=== PATIENT | female | born 1945 | race Caucasian/White ===

== ENCOUNTER 2022-02-16 11:15 | Outpatient (CLI) | payer MEDICARE, SELFPAY ==
[2022-02-16 11:49] LABS: Basophils Percent Auto 0.3 % (0.2-1.2); Eosinophils Percent Auto 0.3 % (0-4.4); Hematocrit 42.1 % (37.0-47.0); Hemoglobin 13.8 g/dL (12.0-15.0); Immature Granulocyte Absolute 0.06 K/mm3 (0.00-0.031); Immature Granulocyte Percent A 0.5 % (0-0.5); Lymphocytes Absolute Auto 2.92 K/mm3 (0.9-3.2); Lymphocytes Percent Auto 24.3 % (18.3-44.2); Mean Corpuscular HGB Conc 32.8 g/dl (32-36); Mean Corpuscular Hemoglobin 31.5 pg (26-34); Mean Corpuscular Volume 96.1 fl (80-100); Mean Platelet Volume 9.8 fl (7.4-10.4); Monocytes Absolute Auto 1.1 K/mm3 (0.1-0.6); Monocytes Percent Auto 9.3 % (2.6-8.5); Neutrophils Absolute Auto 7.8 K/mm3 (1.3-6.7); Neutrophils Percent Auto 65.3 % (45.5-73.1); Platelet Count Result 351 k/mm3 (150-375); Red Blood Count 4.38 M/mm3 (4.2-5.4); Red Cell Distribution Width 14.6 % (11.5-14.5)
[2022-02-16 11:58] LABS: Alanine Aminotransferase 26 U/L (6-35); Albumin Level 4.2 g/dL (3.5-5.1); Alkaline Phosphatase 52 U/L (38-126); Anion Gap 10 mmol/L (8-16); Aspartate Amino Transferase 25 U/L (14-36); Bilirubin,Total 0.3 mg/dL (0.2-1.3); Blood Urea Nitrogen 19 mg/dL (7-17); CRP 1.3 mg/dL (<1.0); Calcium 9.5 mg/dL (8.4-10.2); Carbon Dioxide 32 mmol/L (22-30); Chloride 99 mmol/L (98-107); Cholesterol 189 mg/dL (0-200); Estimated Glomerular Filt Rate 54; Glucose 123 mg/dL (65-110); HDL Direct 61 mg/dL; Sodium 141 mmol/L (137-145); Triglycerides 165 mg/dL (<150); Uric Acid 6.5 mg/dL (2.5-7.5)
[2022-02-16 12:07] LABS: LDL Cholesterol Direct 91 mg/dL
[2022-02-16 12:10] LABS: Hemoglobin A1C 6.5 % (<5.7)
[2022-02-16 13:06] LABS: Digoxin < 0.4 ng/mL (0.8-2.0)
[2022-02-19 15:36] LABS: Anti Cyclic Citrullinated Pept <16 Units (<20)
== END 2022-02-16 11:16 | disposition home or self-care (01) ==
PROVIDERS: PCP Family Medicine; Visit Provider Family Medicine
DX: L40.50 Arthropathic psoriasis, unspecified (principal); M19.90 Unspecified osteoarthritis, unspecified site; I10 Essential (primary) hypertension; I48.91 Unspecified atrial fibrillation; I48.92 Unspecified atrial flutter; E79.0 Hyperuricemia without signs of inflammatory arthritis and tophaceous disease; Z13.1 Encounter for screening for diabetes mellitus; E78.2 Mixed hyperlipidemia; E03.9 Hypothyroidism, unspecified
CPT/HCPCS: 36415; 80053; 80061; 80162; 83036; 84443; 84550; 85025; 86140; 86200

== ENCOUNTER 2022-06-01 08:08 | Outpatient (CLI) | payer MEDICARE, SELFPAY ==
--- NOTE | ~2022-06-01 | XR_ITS ---
EXAMINATION: XR foot RT standing 2V DATE: 06/01/2022 09:16 INDICATION: Arthropathic psoriasis, unspecified. TECHNIQUE: 2 views of right foot standing were obtained. COMPARISON: None. FINDINGS: Bone alignment is normal. No fracture. There is severe osteoarthritis of first metatarsopha langeal joint and mild osteoarthritis of talonavicular joint and some of the interphalangeal joints. There are enthesophytes at the posterior and plantar aspects of calcaneal tuberosity. IMPRESSION: 1. Polyarticular osteoarthritis. Reviewed, dictated and finalized at location A. ER TRIMMER HAND
--- NOTE | ~2022-06-01 | XR_ITS ---
EXAMINATION: XR foot LT standing 2V DATE: 06/01/2022 09:16 INDICATION: Arthropathic psoriasis. TECHNIQUE: 2 views of left foot with weightbearing were obtained. COMPARISON: None. FINDINGS: Bone alignment is normal. No fracture. There is severe osteoarthritis of first metatarsopha langeal joint and mild osteoarthritis of talonavicular joint and some of the interphalangeal joints. There are enthesophytes at the posterior and plantar aspects of calcaneal tuberosity. IMPRESSION: 1. Polyarticular osteoarthritis. Reviewed, dictated and finalized at location A. OR GENETIC COUNSELOR
--- NOTE | ~2022-06-01 | XR_ITS ---
EXAMINATION: XR lumbar spine 2-3V DATE: 06/01/2022 09:16 INDICATION: Arthropathic psoriasis. TECHNIQUE: 3 views of lumbar spine were obtained. COMPARISON: None. FINDINGS: There is 6 degrees dextrocurvature of thoracolumbar spine. There is 3 mm anterolisthesis of L3 on L4. Vertebral body heights are normal. There is severely decreased disc height at L5-S1. There are endplate osteophytes at most levels. There is multilevel severe facet joint osteoarthritis. Ther e is mild osteoarthritis of the sacroiliac joints. There are gallstones in the gallbladder. IMPRESSION: 1. Severe lower lumbar spondylosis. 2. Cholelithiasis. Reviewed, dictated and finalized at location A. NIGHT BABYSITTER
--- NOTE | ~2022-06-01 | XR_ITS ---
EXAMINATION: XR hand BI arthritis min 3V DATE: 06/01/2022 09:16 INDICATION: Arthropathic psoriasis, unspecified. TECHNIQUE: 4 views of right hand and 4 views of left hand on 7 radiographs were obtained. COMPARISON: None. FINDINGS: RIGHT HAND: Scapholunate dissociation is noted. There is severe osteoarthritis of lunate-capitate nathaniel nt, moderate osteoarthritis of triscaphe joint, and severe osteoarthritis of first carpometacarpal elza int. There is moderate osteoarthritis of third metacarpophalangeal joint and mild osteoarthritis of s ome of the metacarpophalangeal joints and interphalangeal joints. At the second-fourth distal interph alangeal joints, there is joint space narrowing, endplate erosions, and osteophytes. There is ankylos is of fifth distal interphalangeal joint. LEFT HAND: Bone alignment is normal. No fracture. There is mild osteoarthritis of triscaphe joint and severe osteoarthritis of first carpometacarpal joint. There is mild osteoarthritis of some of the me tacarpophalangeal joints and interphalangeal joints. There are changes of arthrodesis procedures at s econd, third, and fourth distal interphalangeal joints with screws. IMPRESSION: 1. 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 2. Polyarticular osteoarthritis. 3. Arthritis of right second-fourth distal interphalangeal joints, which may be psoriatic arthritis o r erosive osteoarthritis. 4. 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 5. Arthrodesis procedures at left second-fourth distal interphalangeal joints. Reviewed, dictated and finalized at location A. Y LEVEL SOFTWARE ENGINEER IMPRESSION: 1. 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 2. Polyarticular osteoarthritis. 3. Arthritis of right second-fourth distal interphalangeal joints, which may be psoriatic arthritis or erosive osteoarthritis. 4. 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 5. Arthrodesis procedures at left second-fourth distal interphalangeal joints.
--- NOTE | ~2022-06-01 | XR_ITS ---
EXAMINATION: XR sacroiliac joints min 3V DATE: 06/01/2022 09:16 INDICATION: Arthropathic psoriasis. TECHNIQUE: 3 views of the sacroiliac joints were obtained. COMPARISON: None. FINDINGS: Bone alignment is normal. No fracture. There are bilateral total hip arthroplasties. The sa croiliac joints demonstrate tiny osteophytes. IMPRESSION: 1. Mild osteoarthritis of the sacroiliac joints. No evidence of inflammatory arthropathy. Reviewed, dictated and finalized at location A. RETE PAVING SUPERVISOR IMPRESSION: 1. Mild osteoarthritis of the sacroiliac joints. No evidence of inflammatory ar thropathy.
[2022-06-01 08:47] LABS: Basophils Percent Auto 0.3 % (0.2-1.2); Eosinophils Absolute Auto 0.1 K/mm3 (0-0.3); Eosinophils Percent Auto 0.7 % (0-4.4); Hematocrit 41.6 % (37.0-47.0); Hemoglobin 14.1 g/dL (12.0-15.0); Immature Granulocyte Absolute 0.06 K/mm3 (0.00-0.031); Immature Granulocyte Percent A 0.6 % (0-0.5); Lymphocytes Absolute Auto 2.62 K/mm3 (0.9-3.2); Lymphocytes Percent Auto 26.3 % (18.3-44.2); Mean Corpuscular HGB Conc 33.9 g/dl (32-36); Mean Corpuscular Hemoglobin 32.1 pg (26-34); Mean Corpuscular Volume 94.8 fl (80-100); Mean Platelet Volume 9.6 fl (7.4-10.4); Monocytes Absolute Auto 0.9 K/mm3 (0.1-0.6); Monocytes Percent Auto 9.4 % (2.6-8.5); Neutrophils Absolute Auto 6.2 K/mm3 (1.3-6.7); Neutrophils Percent Auto 62.7 % (45.5-73.1); Platelet Count Result 344 k/mm3 (150-375); Red Blood Count 4.39 M/mm3 (4.2-5.4); Red Cell Distribution Width 13.9 % (11.5-14.5)
[2022-06-01 09:01] LABS: Alanine Aminotransferase 29 U/L (6-35); Albumin Level 4.6 g/dL (3.5-5.1); Alkaline Phosphatase 56 U/L (38-126); Anion Gap 5 mmol/L (8-16); Aspartate Amino Transferase 29 U/L (14-36); Bilirubin,Total 0.5 mg/dL (0.2-1.3); Blood Urea Nitrogen 24 mg/dL (7-17); CRP 1.4 mg/dL (<1.0); Calcium 9.5 mg/dL (8.4-10.2); Carbon Dioxide 32 mmol/L (22-30); Chloride 99 mmol/L (98-107); Estimated Glomerular Filt Rate 54; Glucose 127 mg/dL (65-110); Potassium 3.9 mmol/L (3.4-5.0); Sodium 136 mmol/L (137-145); Uric Acid 7.9 mg/dL (2.5-7.5)
[2022-06-01 09:12] LABS: Erythrocyte Sedimentation Rate 23 mm/hr (0-20)
[2022-06-01 09:26] LABS: Rheumatoid Factor < 12.0 IU/ML (<12)
[2022-06-04 15:08] LABS: NIL 0.05 IU/mL; Quantiferon TB Plus, 1T NEGATIVE (NEGATIVE); TB1-NIL <0.00 IU/mL; TB2-NIL <0.00 IU/mL
[2022-06-05 13:58] LABS: Anti Nuclear Antibody Pattern Nuclear, Nucleolar
[2022-06-05 21:55] LABS: Anti Cyclic Citrullinated Pept <16 Units (<20)
== END 2022-06-01 08:09 | disposition home or self-care (01) ==
PROVIDERS: PCP Family Medicine; Referring Provider Physician Assistant; Visit Provider Internal Medicine
DX: L40.50 Arthropathic psoriasis, unspecified (principal); I10 Essential (primary) hypertension; M19.90 Unspecified osteoarthritis, unspecified site; E11.9 Type 2 diabetes mellitus without complications; M53.3 Sacrococcygeal disorders, not elsewhere classified; M47.896 Other spondylosis, lumbar region; K80.20 Calculus of gallbladder without cholecystitis without obstruction; M19.041 Primary osteoarthritis, right hand; M19.042 Primary osteoarthritis, left hand; M19.071 Primary osteoarthritis, right ankle and foot; M19.072 Primary osteoarthritis, left ankle and foot
CPT/HCPCS: 36415; 72100; 72202; 73130; 73620; 80053; 83036; 84550; 85025; 85652; 86038; 86039; 86140; 86200; 86430; 86480

== ENCOUNTER 2022-06-14 09:11 | Emergency (ER) | payer MEDICARE, SELFPAY ==
--- NOTE | ~2022-06-14 | XR_ITS ---
EXAMINATION: XR chest 2V 06/14/2022 09:50 INDICATION: Cough and congestion. Chest pain. PROCEDURE: 2 view chest COMPARISON: No prior studies for comparison. FINDINGS: The lungs are clear. The cardiomediastinal silhouette is within normal limits. There are no pleural effusions. There is no pneumothorax suspected. IMPRESSION: 1: NO ACUTE CARDIOPULMONARY DISEASE. Reviewed, dictated and finalized at location B. NG MACHINE MECHANIC
--- NOTE | 2022-06-14 09:24 | ED.URI ---
HPI - URI/Sore Throat General Chief Complaint: Upper Respiratory Infection Stated Complaint: cough,sorethroat,congestion Time Seen by Provider: 06/14/22 09:24 Source: patient Mode of arrival: ambulatory Limitations: no limitations History of Present Illness HPI Narrative: Erika is a 76-year-old female patient presenting to the clinic today with complaints of cough, headache, sore throat, nasal congestion, chest congestion x6 days. She reports she has also had a low-grade fever of 100.3. States she is having some chest tightness. Rates the chest tightness/shortness of breath a 5/10 currently. Denies any chest pain or radiation. Cough is productive with some green/page colored phlegm. Does have a history of AFib/flutter, hyperlipidemia, and hypertension. Former smoker. Has been taking Tessalon Perles for her cough. MD elicited complaint: cough, sore throat and nasal congestion Related Data Home Medications Medication Instructions Recorded Confirmed metoprolol succinate 100 mg 100 mg PO DAILY 01/08/22 06/14/22 tablet,extended release 24 hr rivaroxaban 20 mg tablet (Xarelto) 20 mg PO DAILY 01/08/22 06/14/22 Allergies Allergy/AdvReac Type Severity Reaction Status Date / Time iodine Allergy Intermediate Rash Verified 06/14/22 09:31 Ezfgzxo-[id number]-NkC Reductase Allergy Intermediate Muscle Pain Verified 06/14/22 09:31 Inhibitor glycerine Allergy Intermediate Itching Uncoded 06/14/22 09:31 Review of Systems Review of Systems: Pertinent positives per HPI. Patient denies any rash, visual changes, dizziness, palpitations, nausea, vomiting, diarrhea, constipation, abdominal pain, or any urinary issues. [facility] Past Medical History Medical History Arthritis Atrial fibrillation and flutter Benign essential HTN Former smoker She smoked cigarettes but quit in 1981 History of postoperative nausea and vomiting Hyperlipidemia Psoriasis and similar disorder Surgical History Surgical History History of cataract surgery Hx of total hip arthroplasty Family History Family History Mother Hypertension Heart disease Sibling Leukemia Heart disease Thyroid disorder Social History Social History Social History: Smoking status: Former smoker Tobacco type: cigarettes Second hand tobacco smoke exposure: No Alcohol intake: current Alcohol use details: Pt drinks once a month Substance use: never Substance use type: does not use Lack of Transportation: No Lack of Food: Never True Current Housing: I Have Housing Concerned About Future Housing: No Difficulty Paying Gas/Electric Bills: No Difficulty Paying for Meds: No Currently Unemployed: No Education: High School Diploma/GED Difficulty w/ Childcare or Family Care: No Living arrangements: alone Occupation/Education: retired Gender identity (if verbalized by the patient): Female Sexual Orientation (if Verbalized by the Patient): Straight or Heterosexual Comments At the time of my signature, I reviewed and agree with the nursing past medical, surgical, social, and family history. There is no relevant family history pertinent to the patient complaint. Exam Narrative: General: Well-developed, well nourished, in no apparent distress Head: Normocephalic, atraumatic Eyes: Pupils equally round and reactive to light bilaterally, EOM intact, sclera and conjunctive clear, no discharge, lids normal Ears: TMs intact and dull, ear canals clear, no drainage, grossly hearing normal. Nose: Nares patent, clear nasal discharge, no inflammation, no sinus tenderness. Mouth: Oral pharynx without lesions or masses, good dentition, MMM. Oropharynx red with tonsils surgically absent Neck: Sup
[2022-06-14 09:26] VITALS: BP 152/78; PULSE 111; RESP 18; TEMP 36.7; O2SAT 97
--- NOTE | 2022-06-14 09:42 | ECG_ITS ---
Measurements Intervals [place] Rate: 91 P: HI: 0 QRS: -38 QRSD: 93 T: 28 QT: 336 QTc: 414 Interpretive Statements ATRIAL FIBRILLATION BASELINE ARTIFACT LEFT AXIS DEVIATION MINIMAL ST DEPRESSION BORDERLINE ECG NO PREVIOUS ECG AVAILABLE FOR COMPARISON Electronically Signed On 06-14-2022 14:17:56 PAYABLE REPRESENTATIVE by Sam Jackman M.D.
== END 2022-06-14 10:11 | disposition home or self-care (01) ==
PROVIDERS: Emergency Provider Nurse Practitioner Family; PCP Family Medicine
DX: J02.0 Streptococcal pharyngitis (principal); R06.02 Shortness of breath; E11.9 Type 2 diabetes mellitus without complications; I48.91 Unspecified atrial fibrillation; E78.5 Hyperlipidemia, unspecified; I10 Essential (primary) hypertension; Z87.891 Personal history of nicotine dependence; Z79.01 Long term (current) use of anticoagulants; Z20.822 Contact with and (suspected) exposure to COVID-19
CPT/HCPCS: 71046; 87426; 87880; 93005; 99213; C9803; G0463

== ENCOUNTER 2022-08-23 08:17 | Outpatient (CLI) | payer MEDICARE, SELFPAY ==
--- NOTE | ~2022-08-23 | DEXA_ITS ---
Bone Density Report Name: SHERRON CASTAÑEDA Age: 77 Sex: Female Ethnicity: White Date of : 1945 Indication: postmenopausal; screening for osteoporosis; height loss; Referring Provider: VIKKI POSADA Study: Bone densitometry was performed. Exam Date: August 23, 2022 Accession number: [id number] Bone Density: Region BMD T-score Z-score Classification AP Spine(L1-L4) 1.087 0.4 2.8 Normal World Health Organization criteria for BMD impression classify patients as: Normal (T-score at or above -1.0), Osteopenia (T-score between -1.0 and -2.5), or Osteoporosis (T-score at or below -2.5). Clinical Information Provided by Patient: Patient maximum height was 69 Menopause Age: 52 No regular weight bearing exercise Drinks caffeinated beverages Onset of menses at age 15 Number of children 3 Impression: The patient has normal bone mass. Discussion: LOW RISK OF FRACTURE; BONE DENSITY IS WELL ABOVE THE MINIMUM DESIRABLE LEVEL AND ABOVE AVERAGE FOR AGE AND SEX AT ALL SKELETAL SITES TESTED. This person's bone density is above expected limits for age and sex. This is rarely clinically significant, but should be pursued if there are significant musculoskeletal complaints. The patient should follow a healthful lifestyle (good nutrition with adequate calcium and vitamin D, and appropriate weight-bearing exercise). Follow-Up: Consider repeating this study in 5 years or sooner if there is some new clinical indication. Reported by: [facility] on 08/23/2022 9:20:00 AM. Reviewed, dictated and finalized at location AGerald SOLO
--- NOTE | ~2022-08-23 | DEXA_ITS ---
Bone Density Report Name: SHERRON CASTAÑEDA Age: 77 Sex: Female Ethnicity: White Date of : 1945 Indication: postmenopausal; screening for osteoporosis; height loss; Referring Provider: VIKKI POSADA Study: Bone densitometry was performed. Exam Date: August 23, 2022 Accession number: [id number] Bone Density: Region BMD T-score Z-score Classification AP Spine(L1-L4) 1.087 0.4 2.8 Normal World Health Organization criteria for BMD impression classify patients as: Normal (T-score at or above -1.0), Osteopenia (T-score between -1.0 and -2.5), or Osteoporosis (T-score at or below -2.5). Clinical Information Provided by Patient: Patient maximum height was 69 Menopause Age: 52 No regular weight bearing exercise Drinks caffeinated beverages Onset of menses at age 15 Number of children 3 Impression: The patient has normal bone mass. Discussion: LOW RISK OF FRACTURE; BONE DENSITY IS WELL ABOVE THE MINIMUM DESIRABLE LEVEL AND ABOVE AVERAGE FOR AGE AND SEX AT ALL SKELETAL SITES TESTED. This person's bone density is above expected limits for age and sex. This is rarely clinically significant, but should be pursued if there are significant musculoskeletal complaints. The patient should follow a healthful lifestyle (good nutrition with adequate calcium and vitamin D, and appropriate weight-bearing exercise). Follow-Up: Consider repeating this study in 5 years or sooner if there is some new clinical indication. Reported by: [facility] on 08/23/2022 9:03:00 AM. Reviewed, dictated and finalized at location A.
--- NOTE | ~2022-08-23 | MM_ITS ---
EXAMINATION: MM screening kaila BI w heriberto HISTORY: Screening mammogram TECHNIQUE: Craniocaudal and mediolateral oblique 3-D tomosynthesis images were obtained and synthetic 2-D images were generated. CAD analysis was submitted and interpreted. COMPARISON: No prior mammogram is available for comparison at this institution. BREAST PARENCHYMAL COMPOSITION: There are scattered areas of fibroglandular density. FINDINGS: Scattered benign-appearing calcifications are present. No suspicious mass, calcification, o r architectural distortion are identified in either breast to suggest malignancy. IMPRESSION: 1. No mammographic evidence of malignancy. 2. Recommend routine screening mammography in one year. BI-RADS Category 2: Benign finding(s). Reviewed, dictated and finalized at location A.
== END 2022-08-23 08:18 | disposition home or self-care (01) ==
LOC: ANHIMG 08:18
PROVIDERS: PCP Family Medicine; Visit Provider Family Medicine
DX: Z12.31 Encounter for screening mammogram for malignant neoplasm of breast (principal); Z78.0 Asymptomatic menopausal state
CPT/HCPCS: 77063; 77067; 77080

== ENCOUNTER 2022-08-30 09:48 | Outpatient (CLI) | payer MEDICARE, SELFPAY ==
[2022-08-30 10:18] LABS: Hematocrit 40.9 % (37.0-47.0); Hemoglobin 13.5 g/dL (12.0-15.0); Mean Corpuscular Hemoglobin 32.3 pg (26-34); Mean Corpuscular Volume 97.8 fl (80-100); Mean Platelet Volume 9.9 fl (7.4-10.4); Platelet Count Result 326 k/mm3 (150-375); Red Blood Count 4.18 M/mm3 (4.2-5.4); Red Cell Distribution Width 14.6 % (11.5-14.5); White Blood Count 9.1 K/mm3 (4.5-10.0)
[2022-08-30 10:22] LABS: Appearance Urine Clear (Clear); Bacteria Urine None Seen /hpf; Bilirubin Urine Negative (Negative); Blood Urine Negative (Negative); Color Urine Yellow (Yellow); Glucose Urine UA Negative (Negative); Ketones Urine Negative (Negative); Leukocyte Esterase Ur Trace LEU/UL (Negative); Nitrate Urine Negative (Negative); Non Pathogenic Casts 0-2; Protein Urine 3+ mg/dL (Negative); RBC Urine 0-2 /hpf (0-2); Specific Grav Ur 1.017 (1.001-1.035); Squamous Epithelial Cell Urine Occasional /hpf (Few); Urobilinogen Urine 0.2 mg/dL (<2.0)
[2022-08-30 10:34] LABS: Add Urine Microscopic? YES
[2022-08-30 10:34] LABS: Alanine Aminotransferase 32 U/L (6-35); Albumin Level 4.1 g/dL (3.5-5.1); Alkaline Phosphatase 48 U/L (38-126); Anion Gap 6 mmol/L (8-16); Aspartate Amino Transferase 26 U/L (14-36); Bilirubin,Total 0.5 mg/dL (0.2-1.3); Blood Urea Nitrogen 24 mg/dL (7-17); CRP 1.8 mg/dL (<1.0); Calcium 9.3 mg/dL (8.4-10.2); Carbon Dioxide 32 mmol/L (22-30); Chloride 100 mmol/L (98-107); Estimated Glomerular Filt Rate 54; Glucose 123 mg/dL (65-110); Potassium 4.1 mmol/L (3.4-5.0); Sodium 138 mmol/L (137-145)
[2022-08-30 11:01] LABS: Erythrocyte Sedimentation Rate 30 mm/hr (0-20)
[2022-08-30 14:14] LABS: Vitamin D 25 Hydroxy 24.6 ng/mL
== END 2022-08-30 09:49 | disposition home or self-care (01) ==
PROVIDERS: PCP Family Medicine; Visit Provider Internal Medicine
DX: L40.50 Arthropathic psoriasis, unspecified (principal); M19.90 Unspecified osteoarthritis, unspecified site; I10 Essential (primary) hypertension
CPT/HCPCS: 36415; 80053; 81001; 82306; 84550; 85027; 85652; 86140; 87086; 87088

== ENCOUNTER 2022-12-07 08:02 | Outpatient (CLI) | payer MEDICARE, SELFPAY ==
[2022-12-07 08:29] LABS: Hematocrit 41.6 % (37.0-47.0); Hemoglobin 13.4 g/dL (12.0-15.0); Mean Corpuscular HGB Conc 32.2 g/dl (32-36); Mean Corpuscular Hemoglobin 32.1 pg (26-34); Mean Corpuscular Volume 99.8 fl (80-100); Mean Platelet Volume 10.1 fl (7.4-10.4); Platelet Count Result 323 k/mm3 (150-375); Red Blood Count 4.17 M/mm3 (4.2-5.4); Red Cell Distribution Width 13.8 % (11.5-14.5); White Blood Count 11.2 K/mm3 (4.5-10.0)
[2022-12-07 08:41] LABS: Alanine Aminotransferase 31 U/L (6-35); Albumin Level 4.3 g/dL (3.5-5.1); Alkaline Phosphatase 50 U/L (38-126); Anion Gap 6 mmol/L (8-16); Aspartate Amino Transferase 27 U/L (14-36); Bilirubin,Total 0.4 mg/dL (0.2-1.3); Blood Urea Nitrogen 27 mg/dL (7-17); CRP 1.2 mg/dL (<1.0); Calcium 9.4 mg/dL (8.4-10.2); Carbon Dioxide 32 mmol/L (22-30); Chloride 103 mmol/L (98-107); Estimated Glomerular Filt Rate 54; Glucose 126 mg/dL (65-110); Potassium 4.2 mmol/L (3.4-5.0); Sodium 141 mmol/L (137-145)
[2022-12-07 08:50] LABS: Hemoglobin A1C 6.2 % (<5.7)
[2022-12-07 09:08] LABS: Appearance Urine Cloudy (Clear); Bacteria Urine 4+ /hpf; Bilirubin Urine Negative (Negative); Blood Urine Negative (Negative); Color Urine Yellow (Yellow); Glucose Urine UA Negative (Negative); Ketones Urine Negative (Negative); Leukocyte Esterase Ur Negative LEU/UL (Negative); Need Manual Microscopic Reviewed; Nitrate Urine Negative (Negative); Protein Urine 3+ mg/dL (Negative); RBC Urine 0-2 /hpf (0-2); Squamous Epithelial Cell Urine Occasional /hpf (Few); Urobilinogen Urine 0.2 mg/dL (<2.0); WBC Urine 21-50 /hpf
[2022-12-07 09:10] LABS: Add Urine Microscopic? YES
== END 2022-12-07 08:03 | disposition home or self-care (01) ==
LOC: ANHLAB 08:04
PROVIDERS: PCP Family Medicine; Referring Provider Internal Medicine; Visit Provider Family Medicine
DX: L40.50 Arthropathic psoriasis, unspecified (principal); I10 Essential (primary) hypertension; M19.90 Unspecified osteoarthritis, unspecified site; E11.9 Type 2 diabetes mellitus without complications
CPT/HCPCS: 36415; 80053; 81001; 83036; 85027; 86140; 87086; 87088

== ENCOUNTER 2023-04-20 08:12 | Outpatient (CLI) | payer MEDICARE, SELFPAY ==
--- NOTE | ~2023-04-20 | NM_ITS ---
EXAMINATION: NM haider stress w perfusion DATE: 04/20/2023 12:09 INDICATION: Other forms of dyspnea TECHNIQUE: Rest images were obtained following intravenous administration of 11 mCi Tc99m tetrofosmin (Myoview). The patient was infused intravenously with Lexiscan (Regadenoson). Then, 34.2 mCi Tc99m t etrofosmin (Myoview) was administered intravenously, and stress images were obtained. Data was recons tructed into short axis and horizontal and vertical long axis SPECT images. Gated SPECT images were a lso obtained. COMPARISON: None. FINDINGS: There is no definite reversible or fixed perfusion abnormality to suggest ischemia or infar ction. There is normal left ventricular chamber size, wall motion and ejection fraction. Left ventr icular ejection fraction measures >70%. IMPRESSION: 1. Normal myocardial perfusion at rest and during stress. 2. Left ventricular ejection fraction measuring >70%. Reviewed, dictated and finalized at location A. F TECHNICIAN HELPER
--- NOTE | 2023-04-20 08:16 | EST_ITS ---
Patient Info Name: Erika Samaniego Age: 77 years : 1945 Gender: Female Ht: 68 in Wt: 223 lbs BSA: 2.24 m2 HR: 89 bpm BP: 166 / 94 mmHg Heart Rhythm: Sinus Rhythm Exam Date: 04/20/2023 9:11 AM Exam Location: Echo Lab Patient Status: Outpatient Admit Date: 04/20/2023 Staff Ordering Physician: Braxton Arcos DO Attending Provider: Braxton Arcos DO Exercise Technologist: Michelle Kothari RDCS Exercise Physician: Braxton Arcos DO Exam Type: CA stress haider w NM Study Info A regadenoson stress test was performed. Summary 1. 1. Negative Lexiscan stress test for ischemic ST changes by ECG criteria. 2. 2. Baseline hypertension. 3. 3. Nuclear scan to follow and will be reported separately. Please correlate with it. 4. 4. Patient informed of the above results. Protocol: Lexiscan Stress ECG Details Stage: REST Duration (min): 3 min : 31 sec HR (bpm): 87 SBP (mmHg): 166 DBP (mmHg): 94 Stage: REST Duration (min): 10 min : 51 sec HR (bpm): 90 SBP (mmHg): 166 DBP (mmHg): 94 Stage: STAGE 1 Duration (min): 1 min : 0 sec HR (bpm): 103 SBP (mmHg): 198 DBP (mmHg): 82 Stage: RECOVERY Duration (min): 1 min : 0 sec HR (bpm): 106 SBP (mmHg): 198 DBP (mmHg): 82 Stage: RECOVERY Duration (min): 2 min : 0 sec HR (bpm): 94 SBP (mmHg): 198 DBP (mmHg): 82 Stage: RECOVERY Duration (min): 3 min : 0 sec HR (bpm): 95 SBP (mmHg): 171 DBP (mmHg): 79 Stage: RECOVERY Duration (min): 3 min : 30 sec HR (bpm): 94 SBP (mmHg): 171 DBP (mmHg): 79 Rest HR: 90 bpm Peak HR: 110 bpm Rest Sys BP: 166 mmHg Peak Sys BP: 198 mmHg Max Pred HR: 145 bpm % Max Pred HR: 76 % Target HR: 123 bpm Max RPP: 21,780 bpm*mmHg Termination Reason: Completed protocol Cardiac Symptoms: Shortness of breath, Headache Total Time: 1 min : 0 sec Rest Samano BP: 94 mmHg Peak Samano BP: 82 mmHg Total Dose: 0.4 mg Resting ECG Atrial fibrillation. Stress ECG No ST changes. Arrhythmias Only baseline atrial fibrillation. Report Signatures
== END 2023-04-20 08:13 | disposition home or self-care (01) ==
PROVIDERS: PCP Family Medicine; Visit Provider Internal Medicine Cardiovascular Disease
DX: R06.09 Other forms of dyspnea (principal); I10 Essential (primary) hypertension
CPT/HCPCS: 78452; 93017; A9502; J2785

== ENCOUNTER 2023-04-26 14:53 | Outpatient (CLI) | payer MEDICARE, SELFPAY ==
--- NOTE | ~2023-04-26 | CT_ITS ---
EXAMINATION: CT LE LT wo con DATE: 04/26/2023 15:26 INDICATION: Unilateral primary osteoarthritis of left knee. TECHNIQUE: Computed tomography (CT) of the left lower limb was performed without intravenous contrast . Automated exposure control and iterative reconstruction technique were employed. The dose-length pr oduct was 1947.48 mGy-cm. COMPARISON: Left knee radiographs 01/20/2023 FINDINGS: There is a total left hip arthroplasty in near-anatomic alignment. No periprosthetic lucenc y to suggest loosening or infection. Partially visualized is a total right hip arthroplasty. Left kne e demonstrates lateral subluxation of patella. Left knee demonstrates severe osteoarthritis of latera l compartment and moderate osteoarthritis of medial and patellofemoral compartments. There is a large knee joint effusion. IMPRESSION: 1. Severe left knee osteoarthritis. 2. Large left knee joint effusion. 3. Total left hip arthroplasty in near-anatomic alignment. Reviewed, dictated and finalized at location A. NALISTS AND OTHER WRITERS
== END 2023-04-26 14:54 | disposition home or self-care (01) ==
LOC: ANHIMG 14:56
PROVIDERS: PCP Family Medicine; Visit Provider Orthopaedic Surgery
DX: M17.12 Unilateral primary osteoarthritis, left knee (principal); M25.462 Effusion, left knee; Z96.642 Presence of left artificial hip joint
CPT/HCPCS: 73700

== ENCOUNTER 2023-05-13 10:20 | Outpatient (CLI) | payer MEDICARE, SELFPAY ==
[2023-05-13 14:13] LABS: Cholesterol 239 mg/dL (0-200); HDL Direct 56 mg/dL; Triglycerides 266 mg/dL (<150)
[2023-05-13 14:17] LABS: Urine Cotinine NEGATIVE
[2023-05-13 14:24] LABS: LDL Cholesterol Direct 120 mg/dL
[2023-05-13 14:25] LABS: Hemoglobin A1C 6.3 % (<5.7)
== END 2023-05-13 10:21 | disposition home or self-care (01) ==
PROVIDERS: Internal Medicine Cardiovascular Disease; Orthopaedic Surgery; PCP Family Medicine; Visit Provider Internal Medicine Hematology & Oncology
DX: E78.2 Mixed hyperlipidemia (principal); E11.9 Type 2 diabetes mellitus without complications; Z79.899 Other long term (current) drug therapy
CPT/HCPCS: 80061; 80307; 83036

== ENCOUNTER 2023-07-22 12:08 | Outpatient (CLI) | payer MEDICARE, SELFPAY ==
[2023-07-22 13:57] LABS: Basophils Percent Auto 0.2 % (0.2-1.2); Eosinophils Percent Auto 0.4 % (0-4.4); Hematocrit 41.2 % (37.0-47.0); Hemoglobin 13.7 g/dL (12.0-15.0); Immature Granulocyte Absolute 0.04 K/mm3 (0.00-0.031); Immature Granulocyte Percent A 0.4 % (0-0.5); Lymphocytes Absolute Auto 2.71 K/mm3 (0.9-3.2); Lymphocytes Percent Auto 29.2 % (18.3-44.2); Mean Corpuscular HGB Conc 33.3 g/dl (32-36); Mean Corpuscular Hemoglobin 32.9 pg (26-34); Mean Platelet Volume 9.9 fl (7.4-10.4); Monocytes Absolute Auto 1.3 K/mm3 (0.1-0.6); Neutrophils Absolute Auto 5.2 K/mm3 (1.3-6.7); Neutrophils Percent Auto 55.8 % (45.5-73.1); Platelet Count Result 283 k/mm3 (150-375); Red Blood Count 4.16 M/mm3 (4.2-5.4); Red Cell Distribution Width 13.8 % (11.5-14.5); White Blood Count 9.3 K/mm3 (4.5-10.0)
[2023-07-22 14:07] LABS: Albumin Level 4.4 g/dL (3.5-5.1)
[2023-07-22 14:11] LABS: Anion Gap 7 mmol/L (4-12); Blood Urea Nitrogen 27 mg/dL (7-17); Carbon Dioxide 29 mmol/L (22-30); Chloride 102 mmol/L (98-107); Estimated Glomerular Filt Rate 54; Glucose 119 mg/dL (65-110); Potassium 4.4 mmol/L (3.4-5.0); Sodium 138 mmol/L (137-145)
[2023-07-22 14:46] LABS: Hemoglobin A1C 6.1 % (<5.7)
[2023-07-22 14:56] LABS: Urine Cotinine NEGATIVE
[2023-07-22 15:06] LABS: MRSA (PCR) NOT DETECTED (NOT DETECTE)
[2023-07-22 15:19] LABS: Digoxin < 0.5 ng/mL (0.8-2.0)
== END 2023-07-22 12:09 | disposition home or self-care (01) ==
LOC: ANHSURGERY 12:11
PROVIDERS: Anesthesiology; PCP Family Medicine; Visit Provider Orthopaedic Surgery
DX: M17.12 Unilateral primary osteoarthritis, left knee (principal); I10 Essential (primary) hypertension; Z01.818 Encounter for other preprocedural examination
CPT/HCPCS: 36415; 80048; 80162; 80307; 82040; 83036; 85025; 87641

== ENCOUNTER 2023-08-16 00:40 | Day surgery (SDC) | payer MEDICARE, SELFPAY ==
[2023-07-22 12:18] VITALS: BMI 34.2
--- NOTE | 2023-07-22 13:05 | PC.NURSE ---
Report to the Outpatient Waiting Room, entrance under the green pavilion located off [facility], at time _0600 on date _08/16/23 . Planned Procedure Time: ___729 . Time changes happen often and if your time is changed the preop area will call you the afternoon before. - You and your visitor will be asked to self-screen and do not enter if you have any COVID symptoms. - A mask is optional within the hospital at this time. Patients may have clear liquids (water, carbonated beverages, clear teas, apple juice) until 3 hours prior to surgery ( 4:30 AM)with a maximum of 20 ounces. - No food from midnight until time of surgery - Infants may have breast milk until 4 hours before surgery, formula 6 hours prior to surgery. - Children will be allowed to drink immediately following surgery. If applicable, please bring a bottle or sippy cup to assist with drinking. Juice, water, soda, and popsicles are readily available. For infants on formula, please bring formula the day of surgery. Pacifiers are allowed. Take the following medications with a SIP of water the morning of surgery: ____DIGOXIN, DO NOT STOP ANY OF YOUR OTHER PRESCRIPTION MEDICATIONS PRIOR TO SURGERY ?EXCEPT THE FOLLOWING Medications to discontinue per physician ____MAY TAKE TYLENOL IF NEEDED FOR PAIN.HOLD ALL VITAMINS AND SUPPLEMENTS 3 DAYS PRE OP .LAST DOSE 08/12/[address] APPLE Please no make-up, nail bulgarian, hairspray, perfume, deodorant, or body powder the day of surgery. No jewelry (including any body piercings) or valuables the day of surgery, leave them at home. Please take a shower or bath the night before, or the morning of, surgery with an antibacterial soap. Wear comfortable, loose fitting clothing. Children are encouraged to wear pajamas. - Jewelry must be removed prior to entering the operating room. Rings and piercings that are not removed may be cut off. - The hospital will not accept responsibility for valuables. - Please leave all valuables, including medications, at home the day of surgery. If you are going home after surgery, a licensed electric train driver must drive you home. - NO public transportation without another adult if you receive anesthesia. - We recommend that an adult stay with you for 24 hours following discharge. - We also recommend that you do not drive, make important decision, drink alcoholic beverages, or take any drugs that were not prescribed by your health care provider for at least 24 hours after your discharge time. Follow any additional instructions given to you from your surgeon. If you or anyone in your household have experienced Covid symptoms in the past week, please notify your surgeon or the nurse liaison at the phone number below for possible testing. VERBAL AND WRITTEN instructions given to __PATIENT AND DAUGHTER MADI and asked if any additional questions and then verbalized understanding. Patient advised to call surgeon office or pre surgery nurse liaison [phone] if any additional questions.
[2023-07-22 13:19] VITALS: BP 151/73; PULSE 88; RESP 18; TEMP 37.3; O2SAT 98
[2023-07-22 13:40] VITALS: BP 151/74; PULSE 88; RESP 18; TEMP 37.3; O2SAT 98
[2023-08-16] VITALS (12 sets, daily range): BP systolic 132–164; BP diastolic 71–98; PULSE 60–115; RESP 15–20; TEMP 36.4–37.4; O2SAT 92–100
--- NOTE | ~2023-08-16 | XR_ITS ---
EXAMINATION: [id number] DATE: 08/16/2023 10:13 CDT INDICATION: Left total knee arthroplasty TECHNIQUE: 2 views left knee FINDINGS: There is a left total knee arthroplasty in expected position. Subcutaneous gas with fluid and air in the joint are consistent with recent surgery. No evidence of periprosthetic fracture. IMPRESSION: 1. Recent left total knee arthroplasty. Reviewed, dictated and finalized at location B.
[2023-08-16] MEDS: ACETAMINOPHEN 500 MG TABLET 1000 MG PO (06:32)
[2023-08-16] MEDS: LACTATED RINGERS 1,000 ML 30 ML IV CONT ×2 (06:50→09:52)
--- NOTE | 2023-08-16 07:01 | WPDANESEPPF ---
Anes - Initial Pre Proc Eval Procedure: Operation Date: 08/16/23 07:30 Proposed Procedures p Left Custom Total Knee Arthroplasty - Mushtaq Vines MD Date/Time: 08/16/23 07:01 Surgeon: Mushtaq Vines MD Pre Op Diagnosis: Prim O A Lt Knee Patient Data Age: 78 Gender: F Height: 1.73 m Weight: 101.3 kg Last Vital Signs Temp 37.4 C 08/16/23 06:56 Pulse 92 08/16/23 06:56 Resp 16 08/16/23 06:56 BP 164/98 H 08/16/23 06:56 Pulse Ox 99 08/16/23 06:56 O2 Del Method Room Air 08/16/23 06:56 Allergies Allergy/AdvReac Type Severity Reaction Status Date / Time iodine Allergy Intermediate Rash Verified 08/16/23 06:24 Ezydatz-FYH-LuS Reductase Allergy Intermediate Muscle Pain Verified 08/16/23 06:24 Inhibitor glycerine Allergy Intermediate Itching Uncoded 08/16/23 06:24 Home Medications Medication Instructions Recorded Confirmed Type hydrochlorothiazide 25 mg tablet 25 mg PO DAILY #90 tabs 06/08/22 08/16/23 Rx allopurinol 100 mg tablet 100 mg PO DAILY #100 tabs 09/07/22 08/16/23 Rx fenofibrate 160 mg tablet See Rx Instructions .Route 12/13/22 08/16/23 Rx .COMPLEX #90 tabs leucovorin calcium 5 mg tablet 5 mg PO DAILY #90 tabs 04/04/23 08/16/23 Rx methotrexate sodium 2.5 mg tablet See Rx Instructions .Route 04/04/23 08/16/23 Rx .COMPLEX #72 tabs omega-3 fatty acids 1,000 mg 1,000 mg PO BID 05/16/23 08/16/23 History capsule tramadol 50 mg tablet 50 mg PO Q6H PRN pain #30 tabs 05/27/23 08/16/23 Rx apremilast 30 mg tablet (Otezla) 30 mg PO BID #60 tabs 07/21/23 08/16/23 Rx acetaminophen 500 mg capsule 500 mg PO Q6H PRN Pain 07/22/23 08/16/23 History acetaminophen 650 mg 1,300 mg PO Q12H PRN Pain 07/22/23 08/16/23 History tablet,extended release (Tylenol Arthritis Pain) calcium citrate 200 mg (950 mg) 200 mg PO DAILY 07/22/23 08/16/23 History tablet glucosamine HCl 1,500 mg tablet 1,500 mg PO BID 07/22/23 08/16/23 History irbesartan 300 mg tablet 300 mg PO HS 07/22/23 08/16/23 History metoprolol succinate 100 mg 100 mg PO HS 07/22/23 08/16/23 History tablet,extended release 24 hr multivitamin with minerals-folic 1 tablet PO DAILY 07/22/23 08/16/23 History acid 80 mcg chewable tablet (Centrum Adult 50 Plus) rivaroxaban 20 mg tablet (Xarelto) 20 mg PO QPM 07/22/23 08/16/23 History digoxin 125 mcg (0.125 mg) tablet See Rx Instructions .Route 08/04/23 08/16/23 Rx .COMPLEX #90 tabs Patient hx anesthesia problems: none Family hx anesthesia problems: none Results Review: All pre-operative results and documents have been reviewed as part of the pre-operative evaluation. [facility] Past Medical History Medical History Arthritis Atrial fibrillation and flutter Benign essential HTN Former smoker She smoked cigarettes but quit in 1981 History of postoperative nausea and vomiting Hyperlipidemia Hyperuricemia Psoriasis and similar disorder Surgical History Surgical History History of cataract surgery Hx of total hip arthroplasty Family History Family History Mother Hypertension Heart disease Sibling Leukemia Heart disease Thyroid disorder Social History Social History Social History: Smoking packs per day: 1 Smoking cigarettes per day: 20.0 Years smoked: 10 Smoking pack-years: 10.00 Smoking status: Former smoker Tobacco type: cigarettes Second hand tobacco smoke exposure: No Smoking end date: 04/18/81 Additional smoking assessment comments: DENIES ANY FORM OF TOBACCO USE Alcohol intake: current Alcohol use details: Pt drinks once a month Substance use: never Substance use type: does not use Do You Feel Safe in your Home?: Yes Lack of Transportation: No Lack of Food: Never True Current Housing
--- NOTE | 2023-08-16 07:06 | WPDHPUPDATE1 ---
History and Physical Update Update Date/Time: 08/16/23 07:06 History and Physical has been reviewed, including an updated exam of the patient. There are NO changes in the patient's condition. Risks, benefits, and alternatives have been discussed and questions answered. Patient agrees to proceed with procedure.
[2023-08-16] MEDS: TRANEXAMIC ACID 1,000MG/ISO100 1,000 MG/100 ML BAG 200 MG IVPB (07:20)
--- NOTE | 2023-08-16 07:26 | WPDANESPNB ---
Anes - Peripheral Nerve Block Date/Time: 08/16/23 07:26 I have discussed with the patient/family/POA the placement of a peripheral nerve block for post-operative pain management, including associated risks, benefits, complications, and side effects. Alternative methods of post-operative analgesia were detailed. Questions were solicited and answers provided to the satisfaction of the patient/family/POA. Time-Out: A pre-procedural Time-Out was completed immediately before starting the procedure and confirmed: Patient Identification, Site, Procedure, Patient Position and the Availability of Requisite Equipment. Clinical Indications: Acute post-operative pain management requested by the operative surgeon. Nerve Block Insertion Note Anes-nerve block: adductor canal left Patient position: supine Skin prep: chlorhexidine Needle: 22 gauge, stimulating, insulated echogenic needle. Needle length: 80 mm Technique: ultrasound Injectate: bupivacaine 0.5% with epi 5 mcg/ml (30cc - no epi) Observations: tolerated well Complications: none Procedure start time:: 716 Procedure end time:: 720
[2023-08-16] MEDS: ceFAZolin 2 GM/D5W 50 ML 2 GM/50 ML BAG IVPB ×2 (07:30→16:08)
[2023-08-16] MEDS: SODIUM CHLORIDE 0.9% IV 37.7 ML, MORPHINE SULFATE INJ (*CRX) 2 MG, ROPivacaine HCL 1% 2... INFILTRATE (07:57)
--- NOTE | 2023-08-16 08:17 | SUR.OPER ---
Cultures were obtained by the physician and taken from the sterile field, delivered to myself, Rusty Ruelas RN by Astrid Ivey, Fuse Cutter. Cultures were obtained by CINDY Erazo and delivered to Florencia in the main lab by pediatric nurse practitioner, Eugenia Amador RN
--- NOTE | 2023-08-16 09:44 | W.PM.PROC2 ---
Procedure Note - Detailed Date of Procedure 08/16/23 Pre-op Diagnosis Prim O A Lt Knee Post-op Diagnosis Same Procedure Performed Total knee arthroplasty, left Surgeon Mushtaq Vines MD Substance Abuse Specialist Isela Montes De Oca PA-C Anesthesia General and Regional (Subsartorial block.) Findings Thickened soft tissue fluid. Stiffness and large effusion. Marked proliferative synovitis. No purulence. Three cultures sent. Description of Procedure Preoperative antibiotics were given. The limb was prepped and draped in the usual sterile fashion with a well-padded tourniquet high on the thigh. The limb was exsanguinated and the tourniquet inflated to 300 mmHg. A longitudinal incision was created just medial to the patella. A trivector approach to the knee was performed. Arthrotomy was taken down through the joint capsule. No significant releases were initially taken. The synovium was fairly hypertrophic and proliferative. There was an appearance of a wet synovitis similar to that seen with inflammatory shoulder arthropathy. The femur was exposed and the F1 jig was applied. The coring tool was used to remove the cartilage for the F2 jig to sit flush with the bone. The jig was pinned and the distal cut carefully taken. Caliper measurements confirmed appropriate bony resections according to the preoperative templated plan. The F4 cutting jig for the femur was applied, at the standard rotation. The AP and anterior chamfer cuts were taken. The F5 jig was applied and the posterior chamfer cuts were taken. The tibia was prepared using the T1 jig, after removing cartilage for the jig contact points. Proper alignment was checked with the alignment christina. The tibia was cut using the T1u guide. Gap balancing was performed. Gap measurements were taken and the knee was trialed. Excellent alignment and soft tissue balancing was confirmed. The posterior cruciate ligament was recessed along the proximal tibia. The patella was cut for resurfacing. Three lug holes were drilled. Meniscal remnants were removed. The trial components were assembled. Excellent range of motion and proper soft tissue balancing were confirmed throughout the full range of motion. Patellar tracking was excellent. The knee was copiously irrigated periodically throughout the procedure. The real implants were cemented into position. Excess cement was carefully removed. The wound was closed in layers with interrupted #1 Vicryl suture, 2-0 strata fix suture, 0 strata fix suture, 2-0 strata fix suture. Steri-Strips placed on the skin with the knee flexed. Sterile bulky dressing applied. The patient was brought to the recovery room in stable condition. There were no complications. Physician social services assistant, Isela Montes De Oca PA-C, required for surgery; including patient positioning, draping, tissue retraction, maintaining instrument position, cement removal, wound closure, and dressing placement. Implants [employer]form[employer] Custom total knee arthroplasty. Cemented. Cruciate retaining. 6A insert. 35 mm oval patella. Estimated Blood Loss 50 Drains No Pathology Other (Cultures x3.) Complications No immediate complications Condition Stable Disposition PACU [facility] Billing Surgery - Charge Forward: Surgery Billing
[2023-08-16] MEDS: fentaNYL CITRATE INJ (*CRX) 100 MCG/2 ML VIAL 25 MCG IV PUSH ×8 (10:10→10:48)
--- NOTE | 2023-08-16 11:00 | ADMGEN ---
This patient, Erika Samaniego, was admitted to Medical Room 254-01. Patient/family oriented to hospital policies and general routines including ID bracelet, bed and alarms, visiting hours, pain management, procedures, bathroom and other care routines, personal items, smoking policy, room service/diet, and visiting hours. Information on how to activate the Rapid Response Team has been discussed. Patient/Family are encouraged to report perceived risks to care and to ask questions if they do not understand what they are told or what they should do.
[2023-08-16] MEDS: ACETAMINOPHEN 325 MG TABLET 650 MG PO ×2 (12:04→17:14)
[2023-08-16] MEDS: oxyCODONE/ACETAMINOPHEN (*CRX) 5-325 MG TABLET 1 TABLET PO (13:20)
[2023-08-16] MEDS: predniSONE 5 MG TABLET PO (16:48)
[2023-08-16] MEDS: METOPROLOL SUCCINATE EXT REL 100 MG TABCR PO (20:39)
[2023-08-16] MEDS: ASPIRIN 81 MG ENTERIC TABLET PO (20:40)
[2023-08-16] MEDS: FAMOTIDINE 20 MG TABLET PO (20:40)
[2023-08-16] MEDS: IRBESARTAN 150 MG TABLET 300 MG PO (20:40)
[2023-08-17] MEDS: ceFAZolin 2 GM/D5W 50 ML 2 GM/50 ML BAG IVPB ×2 (00:05→07:29)
[2023-08-17] MEDS: ACETAMINOPHEN 325 MG TABLET 650 MG PO ×2 (00:05→05:16)
[2023-08-17 00:32] VITALS: BP 142/78; PULSE 84; RESP 17; TEMP 36.6; O2SAT 98
[2023-08-17 04:33] VITALS: BP 153/72; PULSE 80; RESP 18; TEMP 36.8; O2SAT 98
[2023-08-17 04:58] LABS: Basophils Percent Auto 0.3 % (0.2-1.2); Hematocrit 37.1 % (37.0-47.0); Hemoglobin 11.8 g/dL (12.0-15.0); Immature Granulocyte Absolute 0.15 K/mm3 (0.00-0.031); Lymphocytes Absolute Auto 2.54 K/mm3 (0.9-3.2); Lymphocytes Percent Auto 16.3 % (18.3-44.2); Mean Corpuscular HGB Conc 31.8 g/dl (32-36); Mean Corpuscular Hemoglobin 32.8 pg (26-34); Mean Corpuscular Volume 103.1 fl (80-100); Mean Platelet Volume 10.1 fl (7.4-10.4); Monocytes Absolute Auto 1.9 K/mm3 (0.1-0.6); Monocytes Percent Auto 12.4 % (2.6-8.5); Neutrophils Absolute Auto 10.9 K/mm3 (1.3-6.7); Platelet Count Result 280 k/mm3 (150-375); Red Cell Distribution Width 13.7 % (11.5-14.5); White Blood Count 15.6 K/mm3 (4.5-10.0)
[2023-08-17 05:15] LABS: Anion Gap 9 mmol/L (4-12); Blood Urea Nitrogen 26 mg/dL (7-17); Calcium 8.4 mg/dL (8.4-10.2); Carbon Dioxide 22 mmol/L (22-30); Chloride 104 mmol/L (98-107); Estimated CRCL calculation 48 ml/min; Estimated Glomerular Filt Rate 48; Glucose 133 mg/dL (65-110); Sodium 135 mmol/L (137-145)
[2023-08-17] MEDS: oxyCODONE/ACETAMINOPHEN (*CRX) 10-325 MG TABLET 1 TAB PO (07:28)
--- NOTE | 2023-08-17 07:50 | PM.DS ---
DS: Admitting Diagnosis Discharge Date 08/17/23 Admitting Diagnosis Knee arthritis DS: Discharge Diagnosis Discharge Diagnosis (1) Status post left knee replacement: Code(s): Z96.652 - Presence of left artificial knee joint Status: Acute Assessment and Plan: Postop day 1: Left total knee arthroplasty. Patient tolerated procedure well. No complications. Patient had a very inflammatory knee arthritis. Sent tissue off for culture. No obvious signs of infection intraoperatively. Will cover with Keflex until cultures are back. Pain manageable with pain medication. No numbness or tingling. We had a lengthy discussion regarding postoperative wound care, limitations, expectations, and exercises. Patient shows good understanding. She has had initial physical therapy and is tolerating it well. DVT prophylaxis: 81 mg baby aspirin b.i.d. for 7 days. Then resume Xeralto. Pain medication: Percocet. Prednisone. Antibiotic: Keflex TID for 2 weeks. Stop Methotrexate for 2 weeks after surgery. Patient has followup appointment with Dr. Vines in 3 weeks. DS: Summary Hospital Course Reason for hospitalization: Total knee arthroplasty Hospital Course: Patient tolerated procedure well. Has had initial PT/OT. Status at Discharge Functional status at discharge: uses cane/walker Overall status at discharge: patient is progressing back to baseline Time Spent with Patient Time attestation: Total time spent providing and/or coordinating discharge services: Exam Narrative: 78-year-old overweight female. Resting comfortably in bed. Alert and oriented x3. No acute distress. Wearing compression socks bilaterally. Dressing intact without drainage. Moderate swelling. No ecchymosis. No erythema. No hematoma. Range of motion limited due to pain. Calf nontender. Neurologic status intact. No varicosities. Distal pulses palpable. DS: Data Data Completed and Pending Labs on day of discharge: Labs from last 24 hours 08/17/23 04:26 WBC 15.6 H RBC 3.60 L Hgb 11.8 L Hct 37.1 MCV 103.1 H MCH 32.8 MCHC 31.8 L RDW 13.7 Plt Count 280 MPV 10.1 Immature Gran % (Auto) 1.0 H Neut % (Auto) 70.0 Lymph % (Auto) 16.3 L [place] % (Auto) 12.4 H Eos % (Auto) 0.0 Baso % (Auto) 0.3 Lymph # (Auto) 2.54 [place] # (Auto) 1.9 H Eos # (Auto) 0.0 Baso # (Auto) 0.0 Abs Immat Gran (auto) 0.15 H Absolute Neuts (auto) 10.9 H Absolute Nucleated RBC 0.000 Nucleated RBC % 0.0 Sodium 135 L Potassium 4.0 Chloride 104 Carbon Dioxide 22 Anion Gap 9 BUN 26 H Creatinine 1.10 H Estim Creat Clear Calc 48 Estimated GFR 48 L Glucose 133 H Calcium 8.4 Discharge Plan Discharge Patient Disposition: Home, Self-Care Discharge Instructions: See green instruction sheets. May resume Xarelto 20 mg daily 1 week after surgery. Will bridge with 81 mg Aspirin twice daily. May resume Methotrexate two weeks after surgery. Stand Alone Forms: General Discharge Instructions Follow-up/Referrals: Isela Montes De Oca PA [Physician Legal Officer] - Discharge Medications: New prednisone 5 mg tablet 5 mg PO DAILY 21 Days Qty: 21 0RF aspirin 81 mg tablet,delayed release (DR/EC) 81 mg PO BID 14 Days Qty: 28 0RF oxycodone-acetaminophen 5-325 mg tablet 1 - 2 tablet PO Q4-6H MDD 6 PRN (Reason: pain) Qty: 30 0RF cephalexin 500 mg capsule 500 mg PO TID 14 Days Qty: 42 0RF Continued allopurinol 100 mg tablet 100 mg PO DAILY Qty: 100 4RF Centrum Adult 50 Plus 80 mcg tablet,chewable 1 tablet PO DAILY calcium citrate 200 mg (950 mg) tablet 200 mg PO DAILY glucosamine HCl 1,500 mg tablet 1,500 mg PO BID Rx Instructions: administer with a meal hydrochlorothiazide 25 mg tablet 25 mg PO DAILY Qty: 90 4RF omega-3 fatty acids 1,000 mg capsule 1,000 mg PO BID leucovorin calcium 5 mg tablet 5 mg PO DAILY Qty: 9
[2023-08-17 08:12] VITALS: PULSE 80
[2023-08-17] MEDS: ASPIRIN 81 MG ENTERIC TABLET PO (08:12)
[2023-08-17] MEDS: hydroCHLOROthiazide 25 MG TABLET PO (08:12)
[2023-08-17] MEDS: DIGOXIN TAB 125 MCG TABLET PO (08:12)
[2023-08-17] MEDS: FENOFIBRATE 160 MG TABLET PO (08:12)
[2023-08-17] MEDS: allopurinoL 100 MG TABLET PO (08:12)
[2023-08-17] MEDS: FAMOTIDINE 20 MG TABLET PO (08:12)
[2023-08-17] MEDS: polyethylene glycoL 3350 17 GM POWD.PACK PO (08:12)
[2023-08-17] MEDS: SENNA/DOCUSATE SODIUM TABLET 2 TAB PO (08:12)
[2023-08-17 08:39] VITALS: BP 167/69; PULSE 78; RESP 16; TEMP 36.7; O2SAT 98
--- NOTE | 2023-08-17 09:16 | WPDANESPN ---
Anes - Prog Note Post-Op Date/Time: 08/17/23 09:16 Cardiovascular status: normal Respiratory status: normal Airway patency: baseline Mental status: baseline Post-Op hydration status: normal Vital Signs: Last Vital Signs Temp 36.8 C 08/17/23 04:33 Pulse 80 08/17/23 08:12 Resp 18 08/17/23 04:33 BP 153/72 H 08/17/23 04:33 Pulse Ox 98 08/17/23 04:33 O2 Del Method Room Air 08/16/23 20:50 O2 Flow Rate 2 08/16/23 10:50 Pain Score (VAS): 0 I/O: Intake & Output 08/16/23 08/17/23 08/17/23 23:59 07:59 15:59 Intake Total 1790 700 Balance 1790 700 Laboratory Tests 08/17/23 04:26 08/17/23 04:26 08/17/23 04:26 WBC 15.6 H RBC 3.60 L Hgb 11.8 L Hct 37.1 MCV 103.1 H MCH 32.8 MCHC 31.8 L RDW 13.7 Plt Count 280 MPV 10.1 Immature Gran % (Auto) 1.0 H Neut % (Auto) 70.0 Lymph % (Auto) 16.3 L [place] % (Auto) 12.4 H Eos % (Auto) 0.0 Baso % (Auto) 0.3 Lymph # (Auto) 2.54 [place] # (Auto) 1.9 H Eos # (Auto) 0.0 Baso # (Auto) 0.0 Abs Immat Gran (auto) 0.15 H Absolute Neuts (auto) 10.9 H Absolute Nucleated RBC 0.000 Nucleated RBC % 0.0 Sodium 135 L Potassium 4.0 Chloride 104 Carbon Dioxide 22 Anion Gap 9 BUN 26 H Creatinine 1.10 H Estim Creat Clear Calc 48 Estimated GFR 48 L Glucose 133 H Calcium 8.4 Post-procedural complaints: none Patient Feedback: Patient satisfied with anesthetic care.
== END 2023-08-17 11:05 | disposition home or self-care (01) ==
LOC: ANHSURGERY 10:21 → ANH2MED 10:59
PROVIDERS: Physician Assistant Surgical; PCP Family Medicine; Visit Provider Orthopaedic Surgery
PROC: (CPT 27447; principal; 2023-08-16 07:30)
DX: M17.12 Unilateral primary osteoarthritis, left knee (principal); M65.862 Other synovitis and tenosynovitis, left lower leg; G89.18 Other acute postprocedural pain; I48.91 Unspecified atrial fibrillation; I10 Essential (primary) hypertension; E78.5 Hyperlipidemia, unspecified; L40.9 Psoriasis, unspecified; Z79.01 Long term (current) use of anticoagulants; Z87.891 Personal history of nicotine dependence; Z79.631 Long term (current) use of antimetabolite agent; E66.9 Obesity, unspecified; Z68.34 Body mass index [BMI] 34.0-34.9, adult
CPT/HCPCS: 27447; 64447; 36415; 73560; 80048; 85025; 86850; 86900; 86901; 87070; 87075; 87205; 97110; 97116; 97161; 97165; 97530; 97535; A9270; C1713; C1776; J0171; J0690; J1100; J1170; J1200; J1885; J2250; J2270; J2405; J2704; J2795; J3010; J7120; J7512

== ENCOUNTER 2023-10-03 10:36 | Outpatient (CLI) | payer MEDICARE, SELFPAY ==
--- NOTE | ~2023-10-03 | XR_ITS ---
XR knee LT 3V Ordering provider: Mushtaq Vines MD History: . Z47.1 - Aftercare following joint replacement surgery . Comparison: January 30, 2022 FINDINGS: BONES: No acute fracture or dislocation. 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 JOINT SPACES: Total knee arthroplasty. SOFT TISSUES: Normal. IMPRESSION: No acute osseous abnormality left knee. Total knee arthroplasty. Reviewed, dictated and finalized at location A.
== END 2023-10-03 10:37 | disposition home or self-care (01) ==
PROVIDERS: PCP Family Medicine; Visit Provider Orthopaedic Surgery
DX: Z47.1 Aftercare following joint replacement surgery (principal)
CPT/HCPCS: 73562

== ENCOUNTER 2023-11-27 07:11 | Inpatient (IN) | payer MEDICARE, SELFPAY ==
[2023-11-27] VITALS (22 sets, daily range): BP systolic 136–192; BP diastolic 65–84; PULSE 73–118; RESP 13–23; TEMP 36.6–36.8; O2SAT 95–100
--- NOTE | ~2023-11-27 | CT_ITS ---
EXAMINATION: CT abdomen pelvis wo con DATE: 11/27/2023 08:10 INDICATION: Epigastric tenderness to palpation. Nausea, vomiting, and diarrhea. TECHNIQUE: Computed tomography (CT) of the abdomen and pelvis was performed without intravenous contr ast. Automated exposure control and iterative reconstruction technique were employed. The dose-length product was 1193.06 mGy-cm. COMPARISON: None. FINDINGS: The visualized portions of the lung bases are clear without pneumonia or pleural effusion. The heart size is normal. There are coronary artery calcifications. No pericardial effusion. There is diffuse hepatic steatosis. There are gallstones in the gallbladder, which is distended. Gallbladder wall thickening is noted. The spleen, pancreas, adrenal glands, and kidneys are normal. There are no dilated loops of bowel. The appendix is not visualized. There is calcified atherosclerosis of the aor ta and many of the other arteries. There are no pathologically enlarged lymph nodes. There is no free intraperitoneal fluid. There are bilateral hip arthroplasties. There is severe thoracic and lumbar s pondylosis. IMPRESSION: 1. Acute cholecystitis. 2. Diffuse hepatic steatosis. Reviewed, dictated and finalized at location E.
--- NOTE | ~2023-11-27 | US_ITS ---
EXAMINATION: US abdomen limited DATE: 11/27/2023 11:22 INDICATION: Acute cholecystitis. TECHNIQUE: Multiple grayscale and Doppler ultrasound images of the abdomen were obtained. COMPARISON: CT abdomen and pelvis 11/27/2023 FINDINGS: The visualized portions of the head and body of the pancreas are normal. There is diffuse h epatic steatosis. There is normal flow in main portal vein. The gallbladder is distended and contains gallstones. Gallbladder wall thickening is noted. There is no sonographic Duffy's sign. The common duct is normal and measures 6 mm. IMPRESSION: 1. Distended gallbladder with gallstones and gallbladder wall thickening, but no sonographic Duffy's sign. These findings are consistent with acute cholecystitis. Reviewed, dictated and finalized at location E. IMPRESSION: 1. Distended gallbladder with gallstones and gallbladder wall thickening, but n o sonographic Duffy's sign. These findings are consistent with acute cholecyst itis.
--- NOTE | 2023-11-27 07:18 | ED.NAVMDI ---
HPI - Nausea/Vomiting/Diarrhea General Chief complaint: Nausea/Vomiting/Diarrhea Stated complaint: gallbladder attack Time Seen by Provider: 11/27/23 07:16 Source: patient and other (Friend Summer) Mode of arrival: ambulatory Limitations: no limitations History of Present Illness HPI Narrative: Patient presents with nausea, vomiting, and diarrhea that started at approximately 10:00 p.m. yesterday. The vomiting started at 2:30 a.m. this morning. She has not tried anything yet for pain or nausea. She states this happened once previously before she was told this was a gallbladder attack so she is concerned about this being the same. She states she has been having bilious emesis, not green though she states it is grainy. Her grandson recently had strep but she denies any sore throat. Abdominal pain is located at the epigastrium. Has never had an EGD or colonoscopy and does not follow with a dispatcher service chief. For colon cancer screening she has performed Cologuard. Related Data Home Medications Medication Instructions Recorded Confirmed omega-3 fatty acids 1,000 mg 1,000 mg PO BID 05/16/23 11/27/23 capsule calcium citrate 200 mg (950 mg) 200 mg PO BID 07/22/23 11/27/23 tablet glucosamine HCl 1,500 mg tablet 1,500 mg PO BID 07/22/23 11/27/23 metoprolol succinate 100 mg 100 mg PO HS 07/22/23 11/27/23 tablet,extended release 24 hr multivitamin with minerals-folic 1 tablet PO DAILY 07/22/23 11/27/23 acid 80 mcg chewable tablet (Centrum Adult 50 Plus) allopurinol 100 mg tablet 100 mg PO DAILY 11/27/23 11/27/23 digoxin 125 mcg (0.125 mg) tablet 125 mcg PO DAILY 11/27/23 11/27/23 fenofibrate 160 mg tablet 160 mg PO DAILY 11/27/23 11/27/23 hydrochlorothiazide 25 mg tablet 25 mg PO DAILY 11/27/23 11/27/23 irbesartan 300 mg tablet 300 mg PO HS 11/27/23 11/27/23 rivaroxaban 20 mg tablet (Xarelto) 20 mg PO DAILY 11/27/23 11/27/23 Allergies Allergy/AdvReac Type Severity Reaction Status Date / Time glycerin Allergy Intermediate Itching Verified 11/28/23 13:59 iodine Allergy Intermediate Rash Verified 11/28/23 13:59 Aiametj-QEU-ZkH Reductase Allergy Intermediate Muscle Pain Verified 11/28/23 13:59 Inhibitor PMFSH Past Medical History Medical History Arthritis Atrial fibrillation and flutter Chronic anticoagulation Gout Hepatic steatosis Hyperlipidemia Hypertension Normal nuclear stress test (04/2023) Paroxysmal atrial fibrillation Prediabetes Psoriasis Psoriatic arthritis Surgical History Surgical History History of arthroplasty of left knee (08/16/23) History of cataract extraction with lens replacement History of tonsillectomy History of total left hip arthroplasty (06/2007) History of total right hip arthroplasty (03/2008) Family History Family History Mother Hypertension Heart disease Sibling Leukemia Heart disease Thyroid disorder Social History Social History Social History: Surrogate medical decision maker: Srinivas Samaniego, son. Code status: Full code. Smoking packs per day: 1 Smoking cigarettes per day: 20.0 Years smoked: 10 Smoking pack-years: 10.00 Smoking status: Former smoker Second hand tobacco smoke exposure: No Alcohol intake: current Alcohol use details: Perhaps 1 alcoholic beverage a month. Substance use: never Substance use type: does not use Do You Feel Safe in your Home?: Yes Lack of Transportation: No Lack of Food: Never True Current Housing: I Have Housing Concerned About Future Housing: No Difficulty Paying Gas/Electric Bills: No Difficulty Paying for Meds: No Currently Unemployed: No Education: High School Diploma/GED Difficulty w/ Childcare or Family Care: No Living arrangements: alone
[2023-11-27] MEDS: MORPHINE SULFATE (*CRX) 4 MG/ML INJ IV PUSH ×4 (07:48→20:11)
[2023-11-27] MEDS: SODIUM CHLORIDE 0.9% IV 1,000 ML 999 ML IV CONT (07:48)
[2023-11-27] MEDS: ONDANSETRON INJ 4 MG/2 ML VIAL IV PUSH ×3 (07:48→20:10)
[2023-11-27 07:49] LABS: Basophils Percent Auto 0.2 % (0.2-1.2); Eosinophils Percent Auto 0.1 % (0-4.4); Hematocrit 36.3 % (37.0-47.0); Hemoglobin 12.1 g/dL (12.0-15.0); Immature Granulocyte Absolute 0.11 K/mm3 (0.00-0.031); Immature Granulocyte Percent A 0.7 % (0-0.5); Lymphocytes Absolute Auto 2.15 K/mm3 (0.9-3.2); Lymphocytes Percent Auto 13.5 % (18.3-44.2); Mean Corpuscular HGB Conc 33.3 g/dl (32-36); Mean Corpuscular Hemoglobin 31.9 pg (26-34); Mean Corpuscular Volume 95.8 fl (80-100); Mean Platelet Volume 9.7 fl (7.4-10.4); Monocytes Absolute Auto 0.5 K/mm3 (0.1-0.6); Monocytes Percent Auto 3.4 % (2.6-8.5); Neutrophils Absolute Auto 13.1 K/mm3 (1.3-6.7); Neutrophils Percent Auto 82.1 % (45.5-73.1); Platelet Count Result 377 k/mm3 (150-375); Red Blood Count 3.79 M/mm3 (4.2-5.4); Red Cell Distribution Width 14.2 % (11.5-14.5); White Blood Count 15.9 K/mm3 (4.5-10.0)
[2023-11-27 07:58] LABS: Magnesium 1.9 mg/dL (1.6-2.3)
[2023-11-27 08:02] LABS: Alanine Aminotransferase 25 U/L (6-35); Albumin Level 4.2 g/dL (3.5-5.1); Alkaline Phosphatase 56 U/L (38-126); Anion Gap 11 mmol/L (4-12); Aspartate Amino Transferase 27 U/L (14-36); Bilirubin,Total 0.4 mg/dL (0.2-1.3); Blood Urea Nitrogen 24 mg/dL (7-17); Calcium 9.6 mg/dL (8.4-10.2); Carbon Dioxide 25 mmol/L (22-30); Chloride 98 mmol/L (98-107); Estimated CRCL calculation 51 ml/min; Estimated Glomerular Filt Rate 54; Glucose 166 mg/dL (65-110); Lipase 136 U/L (23-300); Potassium 3.9 mmol/L (3.4-5.0); Sodium 134 mmol/L (137-145)
[2023-11-27 08:33] LABS: Add Urine Microscopic? YES; Appearance Urine Clear (Clear); Bacteria Urine 1+ /hpf; Bilirubin Urine Negative (Negative); Blood Urine Negative (Negative); Color Urine Yellow (Yellow); Glucose Urine UA Negative (Negative); Ketones Urine Negative (Negative); Leukocyte Esterase Ur Negative LEU/UL (Negative); Nitrate Urine Negative (Negative); Non Pathogenic Casts 0-2; Protein Urine 4+ mg/dL (Negative); RBC Urine 0-2 /hpf (0-2); Specific Grav Ur 1.019 (1.001-1.035); Squamous Epithelial Cell Urine Occasional /hpf (Few); Urobilinogen Urine 0.2 mg/dL (<2.0); WBC Urine 0-5 /hpf (0-3); pH Urine 6.5 (5.0-9.0)
[2023-11-27 08:36] LABS: Influenza A QL RT-PCR Negative (Negative); Influenza B QL RT-PCR Negative (Negative); SARS-CoV-2 RNA PCR Negative (Negative)
[2023-11-27] MEDS: HALOPERIDOL LACTATE 5 MG/ML VIAL 2.5 MG IV PUSH (09:54)
--- NOTE | 2023-11-27 14:30 | ADMGEN ---
This patient, Erika Samaniego, was admitted to [facility] Surg Room 320-01 @ 1430. Patient/family oriented to hospital policies and general routines including ID bracelet, bed and alarms, visiting hours, pain management, procedures, bathroom and other care routines, personal items, smoking policy, room service/diet, and visiting hours. Information on how to activate the Rapid Response Team has been discussed. Patient/Family are encouraged to report perceived risks to care and to ask questions if they do not understand what they are told or what they should do.
--- NOTE | 2023-11-27 14:30 | PM.IMHP ---
H&P: HPI History of Present Illness Date/Time: 11/27/23 14:30 Chief Complaint: Abdominal pain, nausea, vomiting. Narrative: This is a very pleasant 78-year-old female with paroxysmal atrial fibrillation on chronic anticoagulation, hypertension, dyslipidemia, prediabetes, and psoriatic arthritis who presented to the emergency department via private vehicle for evaluation of abdominal pain, nausea, and vomiting. The patient provides the following history. She had fish for dinner last night and several hours thereafter she developed severe pain in the epigastric region radiating to the right upper quadrant associated with nausea. Several hours thereafter she had multiple episodes of nonbloody and nonbilious emesis. She has not vomited since the java support engineer hours but continues to have nausea and pain which seems to be colicky in nature. She had a similar episode about 4 years ago and was told it was likely a gallbladder attack she has not had problems since then. She had a loose stool today but it was otherwise unremarkable. She denies fever, chills, hematemesis, melena, hematochezia, bloating, belching, indigestion, chest pain, and shortness of breath. In the ED: She was afebrile on arrival with stable vital signs. Labs are significant for WBC count of 15.9, hemoglobin 12.1, sodium 134, BUN 24, creatinine 1.00, glucose 166, total bilirubin 0.4, AST 27, ALT 25, alkaline phosphatase 56, lipase 136. CT of the abdomen and pelvis showed acute cholecystitis and diffuse hepatic steatosis. Right upper quadrant ultrasound showed a distended gallbladder with gallstones in gallbladder wall thickening. She was given pain medications and started on antibiotics and is being admitted in this setting for supportive care and surgery consultation. Review of Systems Review of Systems: 12 systems were reviewed and are negative except for as per HPI. [facility] Past Medical History Medical History (Updated 11/27/23 @ 16:46 by Kathrine Nielson PA-C) Arthritis Atrial fibrillation and flutter Chronic anticoagulation Gout Hepatic steatosis Hyperlipidemia Hypertension Normal nuclear stress test (04/2023) Paroxysmal atrial fibrillation Prediabetes Psoriasis Psoriatic arthritis Surgical History Surgical History (Updated 11/27/23 @ 14:34 by Kathrine Nielson PA-C) History of arthroplasty of left knee (08/16/23) History of cataract extraction with lens replacement History of tonsillectomy History of total left hip arthroplasty (06/2007) History of total right hip arthroplasty (03/2008) Family History Family History Mother Hypertension Heart disease Sibling Leukemia Heart disease Thyroid disorder Social History Social History (Updated 11/27/23 @ 16:44 by Kathrine Nielson PA-C) Social History: Surrogate medical decision maker: Srinivas Samaniego, son. Code status: Full code. Smoking packs per day: 1 Smoking cigarettes per day: 20.0 Years smoked: 10 Smoking pack-years: 10.00 Smoking status: Former smoker Second hand tobacco smoke exposure: No Alcohol intake: current Alcohol use details: Perhaps 1 alcoholic beverage a month. Substance use: never Substance use type: does not use Do You Feel Safe in your Home?: Yes Lack of Transportation: No Lack of Food: Never True Current Housing: I Have Housing Concerned About Future Housing: No Difficulty Paying Gas/Electric Bills: No Difficulty Paying for Meds: No Currently Unemployed: No Education: High School Diploma/GED Difficulty w/ Childcare or Family Care: No Living arrangements: alone Occupation/Education: retired Spiritual care concerns: No Meds Home Medications and Allergies Home Medications Medication Instructions Recorded Confirmed Type methotrexate sodium 2.5 mg tablet See Rx Instructions .Route 04/04/23 11/27/23 Rx .COMPLEX #72 tabs omega-3 fatty acids 1,000 mg 1,00
[2023-11-27] MEDS: metroNIDAZOLE 500 MG/ISO 100ML 500 MG/100 ML BAG 100 MG IVPB ×2 (15:42→20:13)
[2023-11-27] MEDS: SODIUM CHLORIDE 0.9% IV 1,000 ML 100 ML IV CONT (15:43)
[2023-11-27 18:35] LABS: Glucose Point of Care 111 mg/dl (65-105)
[2023-11-27] MEDS: IRBESARTAN 150 MG TABLET 300 MG PO (20:12)
[2023-11-27] MEDS: METOPROLOL SUCCINATE EXT REL 100 MG TABCR PO (20:13)
[2023-11-28] VITALS (17 sets, daily range): BP systolic 115–178; BP diastolic 62–117; PULSE 76–98; RESP 16–20; TEMP 36.2–37.2; O2SAT 92–100
[2023-11-28 00:20] LABS: Glucose Point of Care 120 mg/dl (65-105)
[2023-11-28] MEDS: ONDANSETRON INJ 4 MG/2 ML VIAL IV PUSH ×5 (00:22→22:40)
[2023-11-28] MEDS: MORPHINE SULFATE (*CRX) 4 MG/ML INJ IV PUSH ×5 (00:22→22:40)
[2023-11-28] MEDS: metroNIDAZOLE 500 MG/ISO 100ML 500 MG/100 ML BAG 100 MG IVPB (05:55)
[2023-11-28 06:14] LABS: Hematocrit 32.6 % (37.0-47.0); Hemoglobin 10.4 g/dL (12.0-15.0); Mean Corpuscular HGB Conc 31.9 g/dl (32-36); Mean Corpuscular Volume 100.3 fl (80-100); Mean Platelet Volume 9.7 fl (7.4-10.4); Platelet Count Result 295 k/mm3 (150-375); Red Blood Count 3.25 M/mm3 (4.2-5.4); Red Cell Distribution Width 14.7 % (11.5-14.5); White Blood Count 12.6 K/mm3 (4.5-10.0)
[2023-11-28 06:31] LABS: Alanine Aminotransferase 20 U/L (6-35); Albumin Level 3.4 g/dL (3.5-5.1); Alkaline Phosphatase 46 U/L (38-126); Anion Gap 7 mmol/L (4-12); Aspartate Amino Transferase 27 U/L (14-36); Bilirubin,Total 0.3 mg/dL (0.2-1.3); Blood Urea Nitrogen 19 mg/dL (7-17); Calcium 8.4 mg/dL (8.4-10.2); Carbon Dioxide 25 mmol/L (22-30); Chloride 102 mmol/L (98-107); Estimated CRCL calculation 53 ml/min; Estimated Glomerular Filt Rate 54; Glucose 155 mg/dL (65-110); Potassium 3.9 mmol/L (3.4-5.0); Sodium 134 mmol/L (137-145)
--- NOTE | 2023-11-28 08:17 | PM.IMPN ---
Progress Note: A&P Assessment and Plan (1) Cholelithiasis with acute cholecystitis: Code(s): K80.00 - Calculus of gallbladder with acute cholecystitis without obstruction Status: Acute Assessment and Plan: Midepigastric pain traveling to her right upper quadrant. Abdominal ultrasound shows acute cholecystitis. General surgery is consulted Patient was started on Rocephin and Flagyl she has a leukocytosis. Liver enzymes are normal Pain medication p.r.n., Zofran p.r.n. nausea, IV fluids Patient is NPO for surgery (2) Paroxysmal atrial fibrillation: Code(s): I48.0 - Paroxysmal atrial fibrillation Status: Acute Assessment and Plan: Rate controlled on digoxin and Xarelto. Xarelto is currently on hold for surgery. Plan DVT prophylaxis: SCDs, Xarelto on hold GI prophylaxis: na Glycemic control: Q.6 Accu-Cheks with q.6 insulin while NPO Code Status: Full code Disposition: This is a 78-year-old female presents to the emergency room with complaints of nausea, vomiting, and abdominal pain. She was found have acute cholecystitis. General surgery was consulted and she is going today for laparoscopic cholecystectomy. She is on antibiotic therapy with Rocephin and Flagyl. Anticipate she may be able to discharge tomorrow. Medication reconciliation obtained via the following: Nurse completed on admission The file time of this note does not necessarily represent the time the patient was seen. Subjective Date/time seen: 11/28/23 08:17 Interval history: This is a very pleasant 78-year-old female with paroxysmal atrial fibrillation on chronic anticoagulation, hypertension, dyslipidemia, prediabetes, and psoriatic arthritis who presented to the emergency department via private vehicle for evaluation of abdominal pain, nausea, and vomiting. 11/27: No acute events overnight. She continues to have abdominal pain which is controlled with IV morphine. She denies any nausea or vomiting since admission. Review of Systems Review of Systems: 12 systems were reviewed and are negative except for as per HPI. All systems reviewed & are unremarkable except as noted in HPI and below Exam Narrative: General: well appearing, appears stated age. HEENT: normocephalic, atraumatic. Mucous membranes moist. EOMI, PERRLA, bilateral sclera anicteric, no conjunctival injection. Neck supple without JVD, lymphadenopathy, or bruit. Respiratory: clear to auscultation bilaterally. No rales/rhonic/wheezes. Cardiovascular: Regular rate and rhythm, normal S1-S2 upon auscultation. No murmurs, rubs, or clicks. PMI is nondisplaced, capillary refill less than 3 second. Abdomen: Soft, round, no pulsatile masses, distended and moderately tender to mid epigastrium traveling to upper quadrant. No rebound, no guarding. No CVA tenderness, no hepatosplenomegaly. Bowel sounds present to all four quadrants. No high pitch or tinkling sounds, resonant to percussion. Extremities: No cyanosis, clubbing, or edema present. Pulses are palpable 2/2. Active ROM to all four extremities. Neuro: Alert and orientated x 4. PERRLA. Cranial nerves 2-12 intact without focal deficit. Skin: Warm, dry, and intact, without rash, erythema, or lesion. Lines: PIV Incisions: na Psych: pleasant, cooperative, normal speech, normal affect, no hallucinations, no dysarthria Objective Data Vital Signs Vital Signs: Vital Signs - 24 hr 11/27/23 08:21 11/27/23 08:30 11/27/23 08:53 Temperature Pulse Rate 96 91 94 Respiratory Rate 15 21 H 17 Blood Pressure Pulse Oximetry 100 98 99 Oxygen Delivery 11/27/23 09:01 11/27/23 09:30 11/27/23 09:45 Temperature Pulse Rate 89 100 92 Respiratory Rate 13 17 14 Blood Pressure 156/84 H Pulse Oximetry 98 99 99 Oxygen Delivery 11/27/23 10:00 11/27/23 10:24 11/27/23 10:31 Tem
[2023-11-28] MEDS: SODIUM CHLORIDE 0.9% IV 1,000 ML 100 ML IV CONT (09:57)
[2023-11-28] MEDS: EZETIMIBE 10 MG TABLET PO (09:58)
[2023-11-28] MEDS: hydroCHLOROthiazide 25 MG TABLET PO (09:58)
[2023-11-28] MEDS: allopurinoL 100 MG TABLET PO (09:58)
[2023-11-28] MEDS: FENOFIBRATE 160 MG TABLET PO (09:58)
[2023-11-28] MEDS: DIGOXIN TAB 125 MCG TABLET PO (09:59)
[2023-11-28 11:54] LABS: Glucose Point of Care 108 mg/dl (65-105)
--- NOTE | 2023-11-28 11:55 | PM.CNGS ---
Assessment and Plan Assessment and plan (1) Cholelithiasis with acute cholecystitis: Code(s): K80.00 - Calculus of gallbladder with acute cholecystitis without obstruction Status: Acute Assessment and Plan: Still quite symptomatic, continue antibiotics, OR for urgent cholecystectomy (2) Paroxysmal atrial fibrillation: Code(s): I48.0 - Paroxysmal atrial fibrillation Status: Acute Assessment and Plan: continue to hold anticoagulation History of Present Illness Consult details Consult date: 11/28/23 Reason for consult: abdominal pain Requesting physician: Zulay Peterson APRN Narrative: The patient is a 78-year-old female presenting to the emergency department complaining of severe epigastric, right upper quadrant abdominal pain. Patient reports this was associated with nausea, vomiting, bloating. The patient also noted some diarrhea. The patient reports that she had a similar episode about 4 years ago and was diagnosed with gallbladder disease at that time. The patient reports some interval symptoms that have been much more mild. Workup in the emergency department, including imaging, is significant for acute cholecystitis. Review of Systems Review of Systems: All systems reviewed & are unremarkable except as noted in HPI and below PMFSH Past Medical History Medical History Arthritis Atrial fibrillation and flutter Chronic anticoagulation Gout Hepatic steatosis Hyperlipidemia Hypertension Normal nuclear stress test (04/2023) Paroxysmal atrial fibrillation Prediabetes Psoriasis Psoriatic arthritis Surgical History Surgical History History of arthroplasty of left knee (08/16/23) History of cataract extraction with lens replacement History of tonsillectomy History of total left hip arthroplasty (06/2007) History of total right hip arthroplasty (03/2008) Family History Family History Mother Hypertension Heart disease Sibling Leukemia Heart disease Thyroid disorder Social History Social History Social History: Surrogate medical decision maker: Srinivas Samaniego, son. Code status: Full code. Smoking packs per day: 1 Smoking cigarettes per day: 20.0 Years smoked: 10 Smoking pack-years: 10.00 Smoking status: Former smoker Second hand tobacco smoke exposure: No Alcohol intake: current Alcohol use details: Perhaps 1 alcoholic beverage a month. Substance use: never Substance use type: does not use Do You Feel Safe in your Home?: Yes Lack of Transportation: No Lack of Food: Never True Current Housing: I Have Housing Concerned About Future Housing: No Difficulty Paying Gas/Electric Bills: No Difficulty Paying for Meds: No Currently Unemployed: No Education: High School Diploma/GED Difficulty w/ Childcare or Family Care: No Living arrangements: alone Occupation/Education: retired Spiritual care concerns: No Meds Home Medications and Allergies Home Medications Medication Instructions Recorded Confirmed Type methotrexate sodium 2.5 mg tablet See Rx Instructions .Route 04/04/23 11/27/23 Rx .COMPLEX #72 tabs omega-3 fatty acids 1,000 mg 1,000 mg PO BID 05/16/23 11/27/23 History capsule apremilast 30 mg tablet (Otezla) 30 mg PO BID #60 tabs 07/21/23 11/27/23 Rx calcium citrate 200 mg (950 mg) 200 mg PO BID 07/22/23 11/27/23 History tablet glucosamine HCl 1,500 mg tablet 1,500 mg PO BID 07/22/23 11/27/23 History metoprolol succinate 100 mg 100 mg PO HS 07/22/23 11/27/23 History tablet,extended release 24 hr multivitamin with minerals-folic 1 tablet PO DAILY 07/22/23 11/27/23 History acid 80 mcg chewable tablet (Centrum Adult 50 Plus) ezetimibe 10 mg tablet 10 mg PO DAILY #90 tabs
--- NOTE | 2023-11-28 12:02 | WPDHPUPDATE1 ---
History and Physical Update Update Date/Time: 11/28/23 12:02 History and Physical has been reviewed, including an updated exam of the patient. There are NO changes in the patient's condition. Risks, benefits, and alternatives have been discussed and questions answered. Patient agrees to proceed with procedure.
--- NOTE | 2023-11-28 13:45 | PC.NURSE ---
patient to surgery per bed. purse locked in closet of room per surgery nurse.
[2023-11-28] MEDS: LACTATED RINGERS 1,000 ML 30 ML IV CONT ×2 (13:50→15:00)
--- NOTE | 2023-11-28 13:53 | WPDANESEPPF ---
Anes - Initial Pre Proc Eval Procedure: Operation Date: 11/28/23 14:30 Proposed Procedures p Laparoscopic Cholecystectomy - Stephanie Ramos MD Date/Time: 11/28/23 13:54 Surgeon: Zulay Peterson APRN Pre Op Diagnosis: acute choleystitis Patient Data Age: 78 Gender: F Height: 1.73 m Weight: 100.8 kg Last Vital Signs Temp 98.9 F 11/28/23 04:55 Pulse 76 11/28/23 09:59 Resp 18 11/28/23 04:55 BP 153/80 H 11/28/23 04:55 Pulse Ox 97 11/28/23 09:29 O2 Del Method Room Air 11/28/23 10:00 FiO2 21 11/28/23 09:29 Allergies Allergy/AdvReac Type Severity Reaction Status Date / Time glycerin Allergy Intermediate Itching Verified 11/27/23 07:26 iodine Allergy Intermediate Rash Verified 11/27/23 07:14 [id number] Reductase Allergy Intermediate Muscle Pain Verified 11/27/23 07:14 Inhibitor Home Medications Medication Instructions Recorded Confirmed Type methotrexate sodium 2.5 mg tablet See Rx Instructions .Route 04/04/23 11/27/23 Rx .COMPLEX #72 tabs omega-3 fatty acids 1,000 mg 1,000 mg PO BID 05/16/23 11/27/23 History capsule apremilast 30 mg tablet (Otezla) 30 mg PO BID #60 tabs 07/21/23 11/27/23 Rx calcium citrate 200 mg (950 mg) 200 mg PO BID 07/22/23 11/27/23 History tablet glucosamine HCl 1,500 mg tablet 1,500 mg PO BID 07/22/23 11/27/23 History metoprolol succinate 100 mg 100 mg PO HS 07/22/23 11/27/23 History tablet,extended release 24 hr multivitamin with minerals-folic 1 tablet PO DAILY 07/22/23 11/27/23 History acid 80 mcg chewable tablet (Centrum Adult 50 Plus) ezetimibe 10 mg tablet 10 mg PO DAILY #90 tabs 11/17/23 11/27/23 Rx allopurinol 100 mg tablet 100 mg PO DAILY 11/27/23 11/27/23 History digoxin 125 mcg (0.125 mg) tablet 125 mcg PO DAILY 11/27/23 11/27/23 History fenofibrate 160 mg tablet 160 mg PO DAILY 11/27/23 11/27/23 History hydrochlorothiazide 25 mg tablet 25 mg PO DAILY 11/27/23 11/27/23 History irbesartan 300 mg tablet 300 mg PO HS 11/27/23 11/27/23 History rivaroxaban 20 mg tablet (Xarelto) 20 mg PO DAILY 11/27/23 11/27/23 History Laboratory Tests 11/27/23 11/28/23 11/28/23 18:33 00:16 05:58 WBC 12.6 H K/mm3 (4.5-10.0) RBC 3.25 L M/mm3 (4.2-5.4) Hgb 10.4 L g/dL (12.0-15.0) Hct 32.6 L % (37.0-47.0) MCV 100.3 H fl (80-100) MCH 32.0 pg (26-34) MCHC 31.9 L g/dl (32-36) RDW 14.7 H % (11.5-14.5) Plt Count 295 k/mm3 (150-375) MPV 9.7 fl (7.4-10.4) Sodium 134 L mmol/L (137-145) Potassium 3.9 mmol/L (3.4-5.0) Chloride 102 mmol/L (98-107) Carbon Dioxide 25 mmol/L (22-30) Anion Gap 7 mmol/L (4-12) BUN 19 H mg/dL (7-17) Creatinine 1.00 mg/dL (0.7-1.0) Estim Creat Clear Calc 53 ml/min Estimated GFR 54 L (59 - ) Glucose 155 H mg/dL (65-110) POC Capillary Glucose 111 H mg/dl 120 H mg/dl (65-105) (65-105) Calcium 8.4 mg/dL (8.4-10.2) Magnesium 2.0 mg/dL (1.6-2.3) Total Bilirubin 0.3 mg/dL (0.2-1.3) AST 27 U/L (14-36) ALT 20 U/L (6-35) Alkaline Phosphatase 46 U/L (38-126) Total Protein 7.0 g/dL (6.3-8.2) Albumin 3.4 L g/dL (3.5-5.1) 11/28/23 11:50 WBC RBC Hgb Hct MCV MCH MCHC RDW Plt Count MPV Sodium Potassium Chloride Carbon Dioxide Anion Gap BUN Creatinine Estim Creat Clear Calc Estimated GFR Glucose POC Capillary Glucose 108 H mg/dl (65-105) Calcium Magnesium Total Bilirubin AST ALT Alkaline Phosphatase Total Protein Albumin Patient hx anesthesia problems: none Family hx anesthesia problems: none
[2023-11-28 13:57] LABS: Glucose Point of Care 107 mg/dl (65-105)
[2023-11-28] MEDS: BUPIVACAINE/EPINEPHRINE 0.5% 10 ML VIAL 30 ML INFILTRATE (14:25)
--- NOTE | 2023-11-28 15:05 | W.PM.PROC2 ---
Procedure Note - Detailed Date of Procedure 11/28/23 Pre-op Diagnosis acute choleystitis, cholelithiasis Post-op Diagnosis Same Procedure Performed Laparoscopic cholecystectomy Surgeon Stephanie Ramos MD Anesthesia General Indications 78-year-old female presenting to the emergency department with acute cholecystitis, cholelithiasis Findings severe acute cholecystitis with cholelithiasis Description of Procedure The patient was taken to the operating room placed in the supine position. After adequate induction of general anesthesia, the patient was prepped and draped in normal sterile fashion. A time-out was then performed to verify the patient's identity as well as the procedure being performed. I then made a 5 mm incision in the infraumbilical region. Through this, a Veress needle was placed into the peritoneal cavity and CO2 gas was then insufflated. After adequate pneumoperitoneum was achieved, the Veress needle was removed and a 5 mm optiview trocar was placed through this incision under direct visualization. I then placed the laparoscope through this trocar site and under direct visualization placed a further 12 mm subxiphoid port as well as 2 additional 5 mm ports in the right upper abdomen. The gallbladder was then identified and was noted to be severely inflamed, distended, and full of gallstones. Given the amount inflammation and distention, the gallbladder was decompressed with an aspirating needle. Very thick bile was noted at this point. I was then able to place a grasper at the dome of the gallbladder and this was retracted anterior and cephalad up over the liver. A 2nd retractor was then placed at the infundibulum and retracted laterally, this allowed visualization of the triangle of Calot. I then was able to visualize the cystic duct in its entirety from its proximal insertion into the gallbladder, to its distal junction with the common hepatic/common bile duct junction. At this point, I carefully skeletonized the proximal cystic duct with the [place] dissector. I then clipped and transected the proximal cystic duct. Next I visualized the cystic artery. Again the artery was skeletonized, clipped, and transected. I then used the Bovie cautery to take down the peritoneal attachments of the gallbladder off the liver bed. This was difficult given the amount of inflammation in the posterior space. Once the gallbladder specimen was completely detached, an endo-pouch was placed through the 12 mm port site. I then placed the gallbladder specimen into the Endo pouch and removed the endo-pouch from the 12 mm port site. The specimen will now be sent to pathology for further review. I then copiously irrigated the right upper quadrant. Some mild oozing was noted in the liver bed and this was controlled with the bovie cautery. I then placed some hemostatic powder in the liver bed. Hemostasis was noted in the liver bed, the clips were noted to be in good position on both the cystic duct stump and the cystic artery stump. No other pathology was noted in the right upper quadrant. I then moved the laparoscope to the subxiphoid port. No iatrogenic injury or other pathology was noted in the lower abdomen. I then closed the 12 mm trocar site under direct visualization using the Louis cone and 0 Vicryl suture. At this point, the abdomen was desufflated and all ports removed. All port sites were then closed with 4.O Monocryl subcuticular sutures. Dermabond was placed on each incision. The patient tolerated the procedure well, was extubated in the operating room postoperative and will be transferred to the recovery room in stable condition Estimated Blood Loss 20 Drains No Packing No Pathology Yes Complications No immediate complications Condition Stable Disposition PACU [facility] Billing Surgery - Charge Forward: Surgery Billing
[2023-11-28 15:13] LABS: Glucose Point of Care 117 mg/dl (65-105)
[2023-11-28] MEDS: fentaNYL CITRATE INJ (*CRX) 100 MCG/2 ML VIAL 25 MCG IV PUSH ×8 (15:37→16:17)
[2023-11-28] MEDS: HYDROmorphone HCL INJ (*CRX) 1 MG/ML SYR 0.25 MG IV PUSH ×2 (16:30→16:36)
[2023-11-28 18:12] LABS: Glucose Point of Care 176 mg/dl (65-105)
[2023-11-28] MEDS: HYDROmorphone HCL INJ (*CRX) 1 MG/ML SYR IV PUSH (18:12)
[2023-11-28] MEDS: IRBESARTAN 150 MG TABLET 300 MG PO (20:29)
[2023-11-28] MEDS: METOPROLOL SUCCINATE EXT REL 100 MG TABCR PO (20:29)
[2023-11-29 00:15] VITALS: BP 149/74; PULSE 90; RESP 20; TEMP 36.6; O2SAT 94
[2023-11-29 00:39] LABS: Glucose Point of Care 175 mg/dl (65-105)
[2023-11-29] MEDS: SODIUM CHLORIDE 0.9% IV 1,000 ML 100 ML IV CONT (04:34)
[2023-11-29 05:40] VITALS: BP 122/54; PULSE 80; RESP 16; TEMP 36.2; O2SAT 96
[2023-11-29 06:40] LABS: Glucose Point of Care 159 mg/dl (65-105)
[2023-11-29 07:04] LABS: Basophils Percent Auto 0.2 % (0.2-1.2); Hematocrit 32.2 % (37.0-47.0); Hemoglobin 10.6 g/dL (12.0-15.0); Immature Granulocyte Absolute 0.11 K/mm3 (0.00-0.031); Immature Granulocyte Percent A 0.7 % (0-0.5); Lymphocytes Absolute Auto 1.26 K/mm3 (0.9-3.2); Lymphocytes Percent Auto 7.6 % (18.3-44.2); Mean Corpuscular HGB Conc 32.9 g/dl (32-36); Mean Corpuscular Hemoglobin 32.2 pg (26-34); Mean Corpuscular Volume 97.9 fl (80-100); Mean Platelet Volume 9.8 fl (7.4-10.4); Monocytes Percent Auto 12.3 % (2.6-8.5); Neutrophils Absolute Auto 13.1 K/mm3 (1.3-6.7); Neutrophils Percent Auto 79.2 % (45.5-73.1); Platelet Count Result 294 k/mm3 (150-375); Red Blood Count 3.29 M/mm3 (4.2-5.4); Red Cell Distribution Width 14.7 % (11.5-14.5); White Blood Count 16.6 K/mm3 (4.5-10.0)
[2023-11-29 07:14] LABS: Alanine Aminotransferase 34 U/L (6-35); Albumin Level 3.5 g/dL (3.5-5.1); Alkaline Phosphatase 49 U/L (38-126); Anion Gap 6 mmol/L (4-12); Aspartate Amino Transferase 42 U/L (14-36); Bilirubin,Total 0.3 mg/dL (0.2-1.3); Blood Urea Nitrogen 19 mg/dL (7-17); Calcium 8.5 mg/dL (8.4-10.2); Carbon Dioxide 27 mmol/L (22-30); Chloride 99 mmol/L (98-107); Estimated CRCL calculation 49 ml/min; Estimated Glomerular Filt Rate 48; Glucose 143 mg/dL (65-110); Magnesium 1.9 mg/dL (1.6-2.3); Sodium 132 mmol/L (137-145)
[2023-11-29 08:00] VITALS: BP 129/70; PULSE 78; PULSE 87; RESP 19; TEMP 36.9; O2SAT 97
[2023-11-29] MEDS: DIGOXIN TAB 125 MCG TABLET PO (08:00)
[2023-11-29] MEDS: EZETIMIBE 10 MG TABLET PO (08:00)
[2023-11-29] MEDS: allopurinoL 100 MG TABLET PO (08:00)
[2023-11-29] MEDS: hydroCHLOROthiazide 25 MG TABLET PO (08:01)
[2023-11-29] MEDS: FENOFIBRATE 160 MG TABLET PO (08:01)
[2023-11-29] MEDS: HYDROcodone/acetaminophen (*CRX) 5-325 MG TABLET 1 TAB PO (08:01)
[2023-11-29] MEDS: ONDANSETRON INJ 4 MG/2 ML VIAL IV PUSH (08:02)
[2023-11-29 11:27] LABS: Glucose Point of Care 115 mg/dl (65-105)
[2023-11-29] MEDS: ACETAMINOPHEN 325 MG TABLET 650 MG PO (11:35)
[2023-11-29 12:00] VITALS: BP 135/61; PULSE 83; RESP 18; TEMP 36.8; O2SAT 99
--- NOTE | 2023-11-29 13:07 | PM.PNGS ---
Progress Note: A&P Assessment and Plan (1) Cholelithiasis with acute cholecystitis: Code(s): K80.00 - Calculus of gallbladder with acute cholecystitis without obstruction Status: Acute Assessment and Plan: will add Toradol for pain control, encourage OOB/IS Subjective Subjective Date/Time Seen: 11/29/23 13:07 Interval history: still c significant RUQ pain, bloating Review of Systems Review of Systems: All systems reviewed & are unremarkable except as noted in HPI and below Exam Const: General: cooperative, no acute distress and uncomfortable Resp: Auscultation: clear to auscultation bilaterally Cardio: Rate: regular rate Rhythm: regular rhythm GI: Inspection: normal to inspection, distended and incision GI Palp: Yes abdominal tenderness, Yes Soft to palpation and Yes Tenderness to palpation present (GI) Objective Data Vital Signs Vital Signs: Vital Signs - 24 hr 11/28/23 14:00 11/28/23 15:00 11/28/23 15:30 Temperature 36.7 C 36.5 C Pulse Rate 90 80 83 Respiratory Rate 16 18 18 Blood Pressure 117/89 115/63 145/73 H Pulse Oximetry 98 100 100 Oxygen Delivery Room Air Simple Face Mask Simple Face Mask Oxygen Flow Rate 6 6 11/28/23 15:35 11/28/23 15:45 11/28/23 16:00 Temperature Pulse Rate 86 86 Respiratory Rate 18 18 Blood Pressure 141/70 H 148/62 H Pulse Oximetry 93 92 Oxygen Delivery Room Air Room Air Room Air Oxygen Flow Rate 11/28/23 15:15 11/28/23 16:15 11/28/23 16:45 Temperature 36.8 C Pulse Rate 80 98 90 Respiratory Rate 18 18 16 Blood Pressure 127/63 151/81 H 156/73 H Pulse Oximetry 100 92 98 Oxygen Delivery Simple Face Mask Room Air Nasal Cannula Oxygen Flow Rate 6 2 11/28/23 16:30 11/28/23 14:00 11/28/23 17:15 Temperature 36.9 C 37.1 C Pulse Rate 93 92 97 Respiratory Rate 16 16 20 Blood Pressure 154/73 H 138/76 162/117 H Pulse Oximetry 98 97 99 Oxygen Delivery Nasal Cannula Oxygen Flow Rate 2 11/28/23 17:30 11/28/23 18:00 11/28/23 20:29 Temperature 36.6 C 36.6 C Pulse Rate 98 85 85 Respiratory Rate 20 18 Blood Pressure 164/91 H 156/76 H Pulse Oximetry 93 95 Oxygen Delivery Oxygen Flow Rate 11/28/23 21:00 11/28/23 20:00 11/29/23 00:15 Temperature 36.2 C L 36.6 C Pulse Rate 77 90 Respiratory Rate 18 20 Blood Pressure 178/86 H 149/74 H Pulse Oximetry 95 94 Oxygen Delivery Room Air Oxygen Flow Rate 11/29/23 05:40 11/29/23 08:00 11/29/23 08:00 Temperature 36.2 C L 36.9 C Pulse Rate 80 87 78 Respiratory Rate 16 19 Blood Pressure 122/54 L 129/70 Pulse Oximetry 96 97 Oxygen Delivery Oxygen Flow Rate 11/29/23 08:00 Temperature Pulse Rate Respiratory Rate Blood Pressure Pulse Oximetry Oxygen Delivery Room Air Oxygen Flow Rate Intake/Output Intake/Output: Intake & Output 11/26/23 11/27/23 11/28/23 11/29/23 23:59 23:59 23:59 23:59 Intake Total 1250 1352.5 680 Balance 1250 1352.5 680 Meds/Results Medications: Active Medications Generic Name Dose Route Start Last Admin Trade Name Freq PRN Reason Stop Dose Admin Acetaminophen 650 mg 11/27/23 13:17 11/29/23 11:35 Acetaminophen 325 Mg Tablet PO 650 mg Q4H PRN Administration Mild Pain (1-3) or Fever Hydrocodone Bitart/Acetaminophen 1 tab 11/28/23 16:49 11/29/23 08:01 Hydrocodone/Acetaminophen (*Crx) 5-325 Mg Tablet PO 1 tab Q6H PRN Administration Pain Rated 4-6 Allopurinol 100 mg 11/28/23 09:00 11/29/23 08:00 Allopurinol 100 Mg Tablet PO 100 mg DAILY MICHAEL Administration Dextrose 12.5 gm 11/27/23 14:40 Dextrose 50% 25 Gm/50 Ml Syringe IV PUSH PRN PRN Hypoglycemia Protocol Digoxin 125 mcg 11/28/23 09:00 11/29/23 08:00 Digoxin Tab 125 Mcg Tablet PO 125 mcg DAILY MICHAEL Administration Ezetimibe 10 mg 11/28/23 09:00 11/29/23 08:00 Ezetimibe 10 Mg Tablet PO 10 mg DAILY MICHAEL Administration Fenofibrate 160 mg 11/28/23 09:0
[2023-11-29] MEDS: KETOROLAC 30 MG/ML VIAL (*BKC) IV PUSH ×3 (13:20→23:34)
--- NOTE | 2023-11-29 14:30 | PM.IMPN ---
Progress Note: A&P Assessment and Plan (1) Cholelithiasis with acute cholecystitis: Code(s): K80.00 - Calculus of gallbladder with acute cholecystitis without obstruction Status: Acute Assessment and Plan: Midepigastric pain traveling to her right upper quadrant. Abdominal ultrasound shows acute cholecystitis. General surgery is consulted Patient was started on Rocephin and Flagyl she has a leukocytosis. Liver enzymes are normal. Postop day 1 from laparoscopic cholecystectomy. Plan for antibiotics for 3 days. When she is taking good p.o. can transition oral. Pain medication p.r.n., Zofran p.r.n. nausea IV fluids stopped she now has pitting edema to her lower extremities Clear liquids with advance as tolerated Pain medications with Tylenol, Justin, Toradol. Bowel regimen with miralax and senna (2) Paroxysmal atrial fibrillation: Code(s): I48.0 - Paroxysmal atrial fibrillation Status: Acute Assessment and Plan: Rate controlled on digoxin and Xarelto. Plan DVT prophylaxis: SCDs, Xarelto GI prophylaxis: N/A Glycemic control: A1C 6.1%, monitor glucose on BMP Code Status: Full code Disposition: This is a 78-year-old female presents to the emergency room with complaints of nausea, vomiting, and abdominal pain. She was found have acute cholecystitis. General surgery was consulted and she is POD 1 from laparoscopic cholecystectomy. She is on antibiotic therapy with Rocephin and Flagyl. She is still having pain and bloating so she remains another night. Anticipate she may be able to discharge tomorrow. Medication reconciliation obtained via the following: Nurse completed on admission The file time of this note does not necessarily represent the time the patient was seen. Subjective Date/time seen: 11/29/23 14:30 Interval history: This is a very pleasant 78-year-old female with paroxysmal atrial fibrillation on chronic anticoagulation, hypertension, dyslipidemia, prediabetes, and psoriatic arthritis who presented to the emergency department via private vehicle for evaluation of abdominal pain, nausea, and vomiting. 11/27: No acute events overnight. She continues to have abdominal pain which is controlled with IV morphine. She denies any nausea or vomiting since admission. 11/28: No acute events overnight. She is postop day 1 from laparoscopic cholecystectomy. She is tolerating a clear liquid diet. She complains of abdominal distention with gas and abdominal pain. She feels like the Justin is not helping her pain. Surgery started her on Toradol. She has +1 pitting edema to her lower extremities. Review of Systems Review of Systems: All systems reviewed & are unremarkable except as noted in HPI and below Exam Narrative: General: well appearing, appears stated age. HEENT: normocephalic, atraumatic. Mucous membranes moist. EOMI, PERRLA, bilateral sclera anicteric, no conjunctival injection. Neck supple without JVD, lymphadenopathy, or bruit. Respiratory: clear to auscultation bilaterally. No rales/rhonic/wheezes. Cardiovascular: Regular rate and rhythm, normal S1-S2 upon auscultation. No murmurs, rubs, or clicks. PMI is nondisplaced, capillary refill less than 3 second. Abdomen: Soft, round, no pulsatile masses, distended and slightly tender. No rebound, no guarding. No CVA tenderness, no hepatosplenomegaly. Bowel sounds present to all four quadrants. No high pitch or tinkling sounds, resonant to percussion. Extremities: No cyanosis, clubbing. + 1 pitting edema to bilateral lower extremities. Pulses are palpable 2/2. Active ROM to all four extremities. Neuro: Alert and orientated x 4. PERRLA. Cranial nerves 2-12 intact without focal deficit. Skin: Warm, dry, and intact, without rash, erythema, or lesion. Lines: PIV Incisions: Laparoscopic incisions x4 with Dermabond open
[2023-11-29] MEDS: RIVAROXABAN 20 MG TABLET PO (17:28)
[2023-11-29 19:26] VITALS: BP 133/69; PULSE 80; RESP 16; TEMP 36.2; O2SAT 99
[2023-11-29 20:18] VITALS: PULSE 80
[2023-11-29] MEDS: METOPROLOL SUCCINATE EXT REL 100 MG TABCR PO (20:18)
[2023-11-29] MEDS: SENNA/DOCUSATE SODIUM TABLET 1 TAB PO (20:19)
[2023-11-29] MEDS: IRBESARTAN 150 MG TABLET 300 MG PO (20:19)
[2023-11-29 23:54] LABS: Glucose Point of Care 93 mg/dl (65-105)
[2023-11-30 05:18] LABS: Glucose Point of Care 104 mg/dl (65-105)
[2023-11-30] MEDS: KETOROLAC 30 MG/ML VIAL (*BKC) IV PUSH (05:43)
[2023-11-30 07:07] LABS: Basophils Percent Auto 0.3 % (0.2-1.2); Eosinophils Percent Auto 2.2 % (0-4.4); Hematocrit 35.1 % (37.0-47.0); Hemoglobin 11.2 g/dL (12.0-15.0); Immature Granulocyte Percent A 0.4 % (0-0.5); Lymphocytes Percent Auto 21.6 % (18.3-44.2); Mean Corpuscular HGB Conc 31.9 g/dl (32-36); Mean Corpuscular Hemoglobin 32.2 pg (26-34); Mean Corpuscular Volume 100.9 fl (80-100); Mean Platelet Volume 9.9 fl (7.4-10.4); Monocytes Percent Auto 11.4 % (2.6-8.5); Neutrophils Percent Auto 64.1 % (45.5-73.1); Platelet Count Result 302 k/mm3 (150-375); Red Blood Count 3.48 M/mm3 (4.2-5.4); Red Cell Distribution Width 14.9 % (11.5-14.5); White Blood Count 14.9 K/mm3 (4.5-10.0)
[2023-11-30 07:08] LABS: Eosinophils Absolute Auto 0.3 K/mm3 (0-0.3); Immature Granulocyte Absolute 0.06 K/mm3 (0.00-0.031); Lymphocytes Absolute Auto 3.22 K/mm3 (0.9-3.2); Monocytes Absolute Auto 1.7 K/mm3 (0.1-0.6); Neutrophils Absolute Auto 9.6 K/mm3 (1.3-6.7)
[2023-11-30 07:29] LABS: Alanine Aminotransferase 34 U/L (6-35); Albumin Level 3.7 g/dL (3.5-5.1); Alkaline Phosphatase 54 U/L (38-126); Anion Gap 9 mmol/L (4-12); Aspartate Amino Transferase 37 U/L (14-36); Bilirubin,Total 0.5 mg/dL (0.2-1.3); Blood Urea Nitrogen 30 mg/dL (7-17); Calcium 8.4 mg/dL (8.4-10.2); Carbon Dioxide 24 mmol/L (22-30); Chloride 97 mmol/L (98-107); Estimated CRCL calculation 31 ml/min; Estimated Glomerular Filt Rate 27; Glucose 102 mg/dL (65-110); Potassium 3.9 mmol/L (3.4-5.0); Sodium 130 mmol/L (137-145)
[2023-11-30 08:00] VITALS: PULSE 80; RESP 16; O2SAT 99
[2023-11-30] MEDS: hydroCHLOROthiazide 25 MG TABLET PO (09:37)
[2023-11-30] MEDS: DIGOXIN TAB 125 MCG TABLET PO (09:37)
[2023-11-30] MEDS: allopurinoL 100 MG TABLET PO (09:37)
[2023-11-30] MEDS: FENOFIBRATE 160 MG TABLET PO (09:37)
[2023-11-30] MEDS: EZETIMIBE 10 MG TABLET PO (09:37)
[2023-11-30] MEDS: polyethylene glycoL 3350 17 GM POWD.PACK PO (09:38)
--- NOTE | 2023-11-30 10:41 | PM.PNGS ---
Progress Note: A&P Assessment and Plan (1) Cholelithiasis with acute cholecystitis: Code(s): K80.00 - Calculus of gallbladder with acute cholecystitis without obstruction Status: Acute Assessment and Plan: slightly improved, will dc Toradol given slight bump in kidney fxn, cont to encourage hydration, OOB/IS (2) Chronic anticoagulation: Code(s): Z79.01 - USP (current) use of anticoagulants Status: Acute Assessment and Plan: ok to restart the Xarelto Subjective Subjective Date/Time Seen: 11/30/23 10:41 Interval history: feels a little better, still c significant postop pain Review of Systems Review of Systems: All systems reviewed & are unremarkable except as noted in HPI and below Exam Const: General: cooperative, no acute distress and uncomfortable Resp: Auscultation: clear to auscultation bilaterally Cardio: Rate: regular rate Rhythm: regular rhythm GI: Inspection: normal to inspection, distended and incision GI Palp: Yes abdominal tenderness and Yes Soft to palpation Objective Data Vital Signs Vital Signs: Vital Signs - 24 hr 11/29/23 12:00 11/29/23 19:26 11/29/23 20:18 Temperature 36.8 C 36.2 C L Pulse Rate 83 80 80 Respiratory Rate 18 16 Blood Pressure 135/61 133/69 Pulse Oximetry 99 99 Oxygen Delivery 11/29/23 20:00 Temperature Pulse Rate Respiratory Rate Blood Pressure Pulse Oximetry Oxygen Delivery Room Air Intake/Output Intake/Output: Intake & Output 11/27/23 11/28/23 11/29/23 11/30/23 23:59 23:59 23:59 23:59 Intake Total 1250 1352.5 920 240 Balance 1250 1352.5 920 240 Meds/Results Medications: Active Medications Generic Name Dose Route Start Last Admin Trade Name Freq PRN Reason Stop Dose Admin Acetaminophen 650 mg 11/27/23 13:17 11/29/23 11:35 Acetaminophen 325 Mg Tablet PO 650 mg Q4H PRN Administration Mild Pain (1-3) or Fever Hydrocodone Bitart/Acetaminophen 1 tab 11/28/23 16:49 11/29/23 08:01 Hydrocodone/Acetaminophen (*Crx) 5-325 Mg Tablet PO 1 tab Q6H PRN Administration Pain Rated 4-6 Allopurinol 100 mg 11/28/23 09:00 08/14/24 09:37 Allopurinol 100 Mg Tablet PO 100 mg DAILY MICHAEL Administration Dextrose 12.5 gm 11/27/23 14:40 Dextrose 50% 25 Gm/50 Ml Syringe IV PUSH PRN PRN Hypoglycemia Protocol Digoxin 125 mcg 11/28/23 09:00 11/30/23 09:37 Digoxin Tab 125 Mcg Tablet PO 125 mcg DAILY MICHAEL Administration Ezetimibe 10 mg 11/28/23 09:00 11/30/23 09:37 Ezetimibe 10 Mg Tablet PO 10 mg DAILY MICHAEL Administration Fenofibrate 160 mg 11/28/23 09:00 11/30/23 09:37 Fenofibrate 160 Mg Tablet PO 160 mg DAILY MICHAEL Administration Fish Oil 1 gm 11/27/23 17:00 11/30/23 09:38 [place] 3 Polyunsat Fatty Acids 1 Gm Cap PO Not Given BID MICHAEL Glucagon 1 mg 11/27/23 14:40 Glucagon For Inj 1 Mg Vial IM PRN PRN Hypoglycemia Protocol Glucose 15 gm 11/27/23 14:40 Glucose Oral Gel 15 Gm Of Glucse In 37.5 Gm Tube PO PRN PRN Hypoglycemia Protocol Hydrochlorothiazide 25 mg 11/28/23 09:00 11/30/23 09:37 Hydrochlorothiazide 25 Mg Tablet PO 25 mg DAILY MICHAEL Administration Dextrose 1,000 mls @ 100 mls/hr 11/27/23 14:40 Dextrose 5% 1,000 Ml IVPB PRN PRN Hypoglycemia Protocol Sodium Chloride 500 mls @ 500 mls/hr 11/30/23 08:57 Normal Saline Iv IV CONT 11/30/23 09:56 .Q1H ONE Insulin Aspart 2 - 5 units 11/27/23 18:00 11/30/23 06:19 Insulin Aspart (*Bkc) 100 Units/Ml SUB-Q Not Given Q6HR MICHAEL Protocol Irbesartan 300 mg 11/27/23 21:00 11/29/23 20:19 Irbesartan 150 Mg Tablet PO 300 mg HS MICHAEL Administration Metoprolol Succinate 100 mg 11/27/23 21:00 11/29/23 20:18 Metoprolol Succinate Ext Rel 100 Mg Tabcr PO 100 mg HS MICHAEL Administration Miscellaneous Information 1 each 11/27/23 00:01 Calcium Citrate N
[2023-11-30] MEDS: SODIUM CHLORIDE 0.9% IV 500 ML IV CONT (11:04)
[2023-11-30 11:45] LABS: Glucose Point of Care 107 mg/dl (65-105)
[2023-11-30 14:13] VITALS: BP 132/70; PULSE 79; RESP 18; TEMP 36.6; O2SAT 98
--- NOTE | 2023-11-30 14:20 | P.PNIM_ITS ---
Progress Note: A&P Assessment and Plan (1) Cholelithiasis with acute cholecystitis: Code(s): K80.00 - Calculus of gallbladder with acute cholecystitis without obstruction Status: Acute Assessment and Plan: Midepigastric pain traveling to her right upper quadrant. Abdominal ultrasound shows acute cholecystitis. * General surgery is consulted * Patient was started on Rocephin and Flagyl she has a leukocytosis. Liver enzymes are normal. Postop day 2 from laparoscopic cholecystectomy. Plan for antibiotics for 3 days. When she is taking good p.o. can transition oral. * Pain medication p.r.n., Zofran p.r.n. nausea * IV fluids stopped she now has pitting edema to her lower extremities * Clear liquids with advance as tolerated * Pain medications with Tylenol, [place], Toradol. Bowel regimen with miralax and senna (2) Paroxysmal atrial fibrillation: Code(s): I48.0 - Paroxysmal atrial fibrillation Status: Acute Assessment and Plan: * Rate controlled resumed BB and Dig * Resumed Xarelto (3) Acute kidney injury: Code(s): N17.9 - Acute kidney failure, unspecified Status: Acute Assessment and Plan: * Likely secondary to anesthesia * Gentle IV hydration. * Avoid nephrotoxic drugs. * Monitor antihypertensive drug therapy. * Avoid NSAIDs. * Monitor electrolytes especially potassium. * Antibiotic doses depending on creatinine clearance. * Pharmacy does medications. * Cr 1.8 baseline 1 Plan Code status: Full code per patient DVT prophylaxis: Xarelto Stress ulcer prophylaxis: Protonix 40 daily PT/OT notes: Ambulatory Disposition: Patient continues admission pain control postop: laparoscopic cholecystectomy. Wbc 14.9 trending down and she has remained afebrile plan for 1 more day IV ABX then discharge tomorrow. Time Spent With Patient Time with patient: 15 - 25 minutes Subjective Date/time seen: 08/14/24 14:20 Interval history: Admission: Medical Record This is a very pleasant 78-year-old female with paroxysmal atrial fibrillation on chronic anticoagulation, hypertension, dyslipidemia, prediabetes, and psoria tic arthritis who presented to the emergency department via private vehicle for evaluation of abdominal pain, nausea, and vomiting. 11/27: No acute events overnight. She continues to have abdominal pain which is controlled with IV morphine. She denies any nausea or vomiting since admission. 11/28: No acute events overnight. She is postop day 1 from laparoscopic cholecystectomy. She is tolerating a clear liquid diet. She complains of abdominal distention with gas and abdominal pain. She feels like the [place] is not helping her pain. Surgery started her on Toradol. She has +1 pitting edema to her lower extremities. 11/29: Assumed care Patient still reported postop pain, and mild BLE swelling. Patient WBC trending down 14.9 today. Cr bumped ordered 500ML bolus follow-up renal panel in the am. Vitals stable and afebrile. Review of Systems Review of Systems: 12 systems were reviewed and are negativ e except for as per HPI. All systems reviewed & are unremarkable except as noted in HPI and below Exam Narrative: Physical Exam: * GENERAL: Alert and oriented x 3. No acute
--- NOTE | 2023-11-30 14:20 | PM.IMPN ---
Progress Note: A&P Assessment and Plan (1) Cholelithiasis with acute cholecystitis: Code(s): K80.00 - Calculus of gallbladder with acute cholecystitis without obstruction Status: Acute Assessment and Plan: Midepigastric pain traveling to her right upper quadrant. Abdominal ultrasound shows acute cholecystitis. General surgery is consulted Patient was started on Rocephin and Flagyl she has a leukocytosis. Liver enzymes are normal. Postop day 2 from laparoscopic cholecystectomy. Plan for antibiotics for 3 days. When she is taking good p.o. can transition oral. Pain medication p.r.n., Zofran p.r.n. nausea IV fluids stopped she now has pitting edema to her lower extremities Clear liquids with advance as tolerated Pain medications with Tylenol, [place], Toradol. Bowel regimen with miralax and senna (2) Paroxysmal atrial fibrillation: Code(s): I48.0 - Paroxysmal atrial fibrillation Status: Acute Assessment and Plan: Rate controlled resumed BB and Dig Resumed Xarelto (3) Acute kidney injury: Code(s): N17.9 - Acute kidney failure, unspecified Status: Acute Assessment and Plan: Likely secondary to anesthesia Gentle IV hydration. Avoid nephrotoxic drugs. Monitor antihypertensive drug therapy. Avoid NSAIDs. Monitor electrolytes especially potassium. Antibiotic doses depending on creatinine clearance. Pharmacy does medications. Cr 1.8 baseline 1 Plan Code status: Full code per patient DVT prophylaxis: Xarelto Stress ulcer prophylaxis: Protonix 40 daily PT/OT notes: Ambulatory Disposition: Patient continues admission pain control postop: laparoscopic cholecystectomy. Wbc 14.9 trending down and she has remained afebrile plan for 1 more day IV ABX then discharge tomorrow. Time Spent With Patient Time with patient: 15 - 25 minutes Subjective Date/time seen: 11/30/23 14:20 Interval history: Admission: Medical Record This is a very pleasant 78-year-old female with paroxysmal atrial fibrillation on chronic anticoagulation, hypertension, dyslipidemia, prediabetes, and psoriatic arthritis who presented to the emergency department via private vehicle for evaluation of abdominal pain, nausea, and vomiting. 11/27: No acute events overnight. She continues to have abdominal pain which is controlled with IV morphine. She denies any nausea or vomiting since admission. 11/28: No acute events overnight. She is postop day 1 from laparoscopic cholecystectomy. She is tolerating a clear liquid diet. She complains of abdominal distention with gas and abdominal pain. She feels like the [place] is not helping her pain. Surgery started her on Toradol. She has +1 pitting edema to her lower extremities. 11/29: Assumed care Patient still reported postop pain, and mild BLE swelling. Patient WBC trending down 14.9 today. Cr bumped ordered 500ML bolus follow-up renal panel in the am. Vitals stable and afebrile. Review of Systems Review of Systems: 12 systems were reviewed and are negative except for as per HPI. All systems reviewed & are unremarkable except as noted in HPI and below Exam Narrative: Physical Exam: GENERAL: Alert and oriented x 3. No acute distress. EYES: EOMI. No scleral icterus. PERRLA. HEENT: Moist mucous membranes. LUNGS: Clear to auscultation bilaterally. No accessory muscle use. CARDIOVASCULAR: Regular rate and rhythm. No murmur. No JVD. S1-S2 ABDOMEN: Soft, non tenderness and non-distended. No palpable masses. EXTREMITIES: No edema. Non-tender SKIN: No rashes or lesions. Skin warm, dry. Incisions: Laparoscopic incisions x4 with Dermabond open to air, clean dry and intact. scant edema BLE NEUROLOGIC: No focal neurological deficits. CN II-XII grossly intact PSYCHIATRIC: Handy
[2023-11-30] MEDS: RIVAROXABAN 20 MG TABLET PO (18:11)
[2023-11-30 20:55] VITALS: PULSE 78
[2023-11-30] MEDS: SENNA/DOCUSATE SODIUM TABLET 1 TAB PO (20:55)
[2023-11-30] MEDS: IRBESARTAN 150 MG TABLET 300 MG PO (20:55)
[2023-11-30] MEDS: METOPROLOL SUCCINATE EXT REL 100 MG TABCR PO (20:55)
[2023-11-30 21:48] VITALS: BP 143/83; PULSE 88; RESP 20; TEMP 37.2; O2SAT 98
[2023-11-30 23:47] LABS: Glucose Point of Care 114 mg/dl (65-105)
[2023-12-01 05:47] LABS: Glucose Point of Care 103 mg/dl (65-105)
[2023-12-01 06:00] VITALS: BP 163/93; PULSE 73; RESP 20; TEMP 37.1; O2SAT 97
[2023-12-01 06:23] VITALS: BP 142/74
[2023-12-01 06:37] LABS: Basophils Absolute Auto 0.1 K/mm3 (0.0-0.1); Basophils Percent Auto 0.4 % (0.2-1.2); Eosinophils Absolute Auto 0.5 K/mm3 (0-0.3); Hematocrit 33.2 % (37.0-47.0); Hemoglobin 10.6 g/dL (12.0-15.0); Immature Granulocyte Absolute 0.05 K/mm3 (0.00-0.031); Immature Granulocyte Percent A 0.4 % (0-0.5); Lymphocytes Absolute Auto 2.67 K/mm3 (0.9-3.2); Lymphocytes Percent Auto 23.1 % (18.3-44.2); Mean Corpuscular HGB Conc 31.9 g/dl (32-36); Mean Corpuscular Hemoglobin 31.1 pg (26-34); Mean Corpuscular Volume 97.4 fl (80-100); Mean Platelet Volume 9.6 fl (7.4-10.4); Monocytes Absolute Auto 1.4 K/mm3 (0.1-0.6); Monocytes Percent Auto 11.9 % (2.6-8.5); Neutrophils Absolute Auto 6.9 K/mm3 (1.3-6.7); Neutrophils Percent Auto 60.2 % (45.5-73.1); Platelet Count Result 351 k/mm3 (150-375); Red Blood Count 3.41 M/mm3 (4.2-5.4); Red Cell Distribution Width 14.5 % (11.5-14.5); White Blood Count 11.6 K/mm3 (4.5-10.0)
[2023-12-01 06:53] LABS: Alanine Aminotransferase 33 U/L (6-35); Albumin Level 3.6 g/dL (3.5-5.1); Alkaline Phosphatase 56 U/L (38-126); Anion Gap 8 mmol/L (4-12); Aspartate Amino Transferase 32 U/L (14-36); Bilirubin,Total 0.4 mg/dL (0.2-1.3); Blood Urea Nitrogen 30 mg/dL (7-17); Calcium 8.7 mg/dL (8.4-10.2); Carbon Dioxide 28 mmol/L (22-30); Chloride 98 mmol/L (98-107); Estimated CRCL calculation 39 ml/min; Estimated Glomerular Filt Rate 37; Glucose 105 mg/dL (65-110); Potassium 3.6 mmol/L (3.4-5.0); Sodium 134 mmol/L (137-145)
--- NOTE | 2023-12-01 08:40 | PM.PNGS ---
Progress Note: A&P Assessment and Plan (1) Cholelithiasis with acute cholecystitis: Code(s): K80.00 - Calculus of gallbladder with acute cholecystitis without obstruction Status: Acute Assessment and Plan: much improved, ok to dc home from surgical standpoint c po analgesia, routine postop care, f/u 2 wks Subjective Subjective Date/Time Seen: 12/01/23 08:40 Interval history: feels much better today Review of Systems Review of Systems: All systems reviewed & are unremarkable except as noted in HPI and below Exam Const: General: cooperative, comfortable and no acute distress Resp: Auscultation: clear to auscultation bilaterally Cardio: Rate: regular rate Rhythm: regular rhythm GI: Inspection: normal to inspection, non-distended and incision GI Palp: Yes abdominal tenderness and Yes Soft to palpation Objective Data Vital Signs Vital Signs: Vital Signs - 24 hr 11/30/23 14:13 11/30/23 20:55 11/30/23 20:00 Temperature 36.6 C Pulse Rate 79 78 Respiratory Rate 18 Blood Pressure 132/70 Pulse Oximetry 98 Oxygen Delivery Room Air 11/30/23 21:48 12/01/23 06:00 12/01/23 06:23 Temperature 37.2 C 37.1 C Pulse Rate 88 73 Respiratory Rate 20 20 Blood Pressure 143/83 H 163/93 H 142/74 H Pulse Oximetry 98 97 Oxygen Delivery Intake/Output Intake/Output: Intake & Output 11/28/23 11/29/23 11/30/23 12/01/23 23:59 23:59 23:59 23:59 Intake Total 1352.5 920 720 Output Total 550 1400 Balance 1352.5 920 170 -1400 Meds/Results Medications: Active Medications Generic Name Dose Route Start Last Admin Trade Name Freq PRN Reason Stop Dose Admin Acetaminophen 650 mg 11/27/23 13:17 11/29/23 11:35 Acetaminophen 325 Mg Tablet PO 650 mg Q4H PRN Administration Mild Pain (1-3) or Fever Hydrocodone Bitart/Acetaminophen 1 tab 11/28/23 16:49 11/29/23 08:01 Hydrocodone/Acetaminophen (*Crx) 5-325 Mg Tablet PO 1 tab Q6H PRN Administration Pain Rated 4-6 Allopurinol 100 mg 11/28/23 09:00 11/30/23 09:37 Allopurinol 100 Mg Tablet PO 100 mg DAILY MICHAEL Administration Dextrose 12.5 gm 11/27/23 14:40 Dextrose 50% 25 Gm/50 Ml Syringe IV PUSH PRN PRN Hypoglycemia Protocol Digoxin 125 mcg 11/28/23 09:00 11/30/23 09:37 Digoxin Tab 125 Mcg Tablet PO 125 mcg DAILY MICHAEL Administration Ezetimibe 10 mg 11/28/23 09:00 11/30/23 09:37 Ezetimibe 10 Mg Tablet PO 10 mg DAILY MICHAEL Administration Fenofibrate 160 mg 11/28/23 09:00 11/30/23 09:37 Fenofibrate 160 Mg Tablet PO 160 mg DAILY MICHAEL Administration Fish Oil 1 gm 11/27/23 17:00 11/30/23 17:52 [place] 3 Polyunsat Fatty Acids 1 Gm Cap PO Not Given BID MICHAEL Glucagon 1 mg 11/27/23 14:40 Glucagon For Inj 1 Mg Vial IM PRN PRN Hypoglycemia Protocol Glucose 15 gm 11/27/23 14:40 Glucose Oral Gel 15 Gm Of Glucse In 37.5 Gm Tube PO PRN PRN Hypoglycemia Protocol Hydrochlorothiazide 25 mg 11/28/23 09:00 11/30/23 09:37 Hydrochlorothiazide 25 Mg Tablet PO 25 mg DAILY MICHAEL Administration Dextrose 1,000 mls @ 100 mls/hr 11/27/23 14:40 Dextrose 5% 1,000 Ml IVPB PRN PRN Hypoglycemia Protocol Insulin Aspart 2 - 5 units 11/27/23 18:00 12/01/23 05:54 Insulin Aspart (*Bkc) 100 Units/Ml SUB-Q Not Given Q6HR [facility] Protocol Irbesartan 300 mg 11/27/23 21:00 11/30/23 20:55 Irbesartan 150 Mg Tablet PO 300 mg HS MICHAEL Administration Metoprolol Succinate 100 mg 11/27/23 21:00 11/30/23 20:55 Metoprolol Succinate Ext Rel 100 Mg Tabcr PO 100 mg HS MICHAEL Administration Morphine Sulfate 4 mg 11/27/23 13:17 11/28/23 22:40 Morphine Sulfate (*Crx) 4 Mg/Ml Inj IV PUSH 4 mg Q2H PRN Administration Pain Rated 7-10 Morphine Sulfate 2 mg 11/28/23 10:15 Morphine Sulfate (*Crx) 2 Mg/Ml Inj IV PUSH Q4H PRN Pain Rated 4-6 Multivitamins/Min
--- NOTE | 2023-12-01 09:10 | PM.DS ---
DS: Admitting Diagnosis Discharge Date 12/01/2023 Admitting Diagnosis Cholecystitis DS: Discharge Diagnosis Discharge Diagnosis (1) Cholelithiasis with acute cholecystitis: Code(s): K80.00 - Calculus of gallbladder with acute cholecystitis without obstruction Status: Acute Assessment and Plan: Midepigastric pain traveling to her right upper quadrant. Abdominal ultrasound shows acute cholecystitis. General surgery is consulted Patient was started on Rocephin and Flagyl she has a leukocytosis. Liver enzymes are normal. Postop day 2 from laparoscopic cholecystectomy. Plan for antibiotics for 3 days. When she is taking good p.o. can transition oral. Pain medication p.r.n., Zofran p.r.n. nausea IV fluids stopped she now has pitting edema to her lower extremities Clear liquids with advance as tolerated Pain medications with Tylenol, [place], Toradol. Bowel regimen with miralax and senna (2) Paroxysmal atrial fibrillation: Code(s): I48.0 - Paroxysmal atrial fibrillation Status: Acute Assessment and Plan: Rate controlled resumed BB and Dig Resumed Xarelto (3) Acute kidney injury: Code(s): N17.9 - Acute kidney failure, unspecified Status: Acute Assessment and Plan: Likely secondary to anesthesia Gentle IV hydration. Avoid nephrotoxic drugs. Monitor antihypertensive drug therapy. Avoid NSAIDs. Monitor electrolytes especially potassium. Antibiotic doses depending on creatinine clearance. Pharmacy does medications. Cr 1.8 baseline 1 Plan Code status: Full code per patient DVT prophylaxis: Xarelto Stress ulcer prophylaxis: Protonix 40 daily PT/OT notes: Ambulatory Disposition: Patient continues admission pain control postop: laparoscopic cholecystectomy. Wbc 14.9 trending down and she has remained afebrile plan for 1 more day IV ABX then discharge tomorrow. DS: Summary Hospital Course Reason for hospitalization: Cholecystitis Hospital Course: Admission: Medical Record This is a very pleasant 78-year-old female with paroxysmal atrial fibrillation on chronic anticoagulation, hypertension, dyslipidemia, prediabetes, and psoriatic arthritis who presented to the emergency department via private vehicle for evaluation of abdominal pain, nausea, and vomiting. Patient was admitted for cholecystitis consult to General surgery and plan for surgical intervention. 11/27: No acute events overnight. She continues to have abdominal pain which is controlled with IV morphine. She denies any nausea or vomiting since admission. 11/28: No acute events overnight. She is postop day 1 from laparoscopic cholecystectomy. She is tolerating a clear liquid diet. She complains of abdominal distention with gas and abdominal pain. She feels like the [place] is not helping her pain. Surgery started her on Toradol. She has +1 pitting edema to her lower extremities. 11/29: Assumed care Patient still reported postop pain, and mild BLE swelling. Patient WBC trending down 14.9 today. Cr bumped ordered 500ML bolus follow-up renal panel in the am. Vitals stable and afebrile. 12/01/2023: DISCHARGED Patient doing well today, WBC 11.6 and afebrile overnight. cleared by surgery site clean, dry and intact. ABD tenderness improved and pain controlled. Patient was discharged to home with follow-up to surgery in 2 weeks. Status at Discharge Functional status at discharge: independent ambulation Overall status at discharge: patient is back to baseline Time Spent with Patient Time attestation: Total time spent providing and/or coordinating discharge services: Time spent: Greater than 30 minutes Exam Narrative: Physical Exam: GENERAL: Alert and oriented x 3. No acute distress. EYES: EOMI. No scleral icterus. PE
[2023-12-01] MEDS: MULTIVITS W-FE,MIN CHEWABLE TABLET 1 TABLET PO (09:23)
[2023-12-01 09:24] VITALS: PULSE 72
[2023-12-01] MEDS: EZETIMIBE 10 MG TABLET PO (09:24)
[2023-12-01] MEDS: allopurinoL 100 MG TABLET PO (09:24)
[2023-12-01] MEDS: DIGOXIN TAB 125 MCG TABLET PO (09:24)
[2023-12-01] MEDS: FENOFIBRATE 160 MG TABLET PO (09:24)
[2023-12-01 09:25] VITALS: PULSE 72; RESP 20; O2SAT 97
[2023-12-01] MEDS: hydroCHLOROthiazide 25 MG TABLET PO (09:25)
== END 2023-12-01 11:05 | disposition home or self-care (01) | DRG 409 ==
LOC: ANHED 07:39 → ANH3MEDSUR 13:52
PROVIDERS: Internal Medicine; Nurse Practitioner Acute Care; Physician Assistant; Surgery; Admitting Provider Internal Medicine; Emergency Provider Student in an Organized Health Care Education/Training Program; PCP Family Medicine; Visit Provider Nurse Practitioner Family
PROC: 0FT44ZZ Resection of Gallbladder, Percutaneous Endoscopic Approach (ICD-10-PCS; CPT 47562; principal; 2023-11-28 14:30)
DX: K80.00 Calculus of gallbladder with acute cholecystitis without obstruction (principal); N17.9 Acute kidney failure, unspecified; I10 Essential (primary) hypertension; I48.0 Paroxysmal atrial fibrillation; R73.03 Prediabetes; E78.5 Hyperlipidemia, unspecified; K76.0 Fatty (change of) liver, not elsewhere classified; L40.50 Arthropathic psoriasis, unspecified; M10.9 Gout, unspecified; M19.90 Unspecified osteoarthritis, unspecified site; Z96.643 Presence of artificial hip joint, bilateral; Z20.822 Contact with and (suspected) exposure to COVID-19; Z79.01 Long term (current) use of anticoagulants; Z87.891 Personal history of nicotine dependence
CPT/HCPCS: 36415; 74176; 76705; 80053; 81001; 82948; 83690; 83735; 85025; 85027; 87636; 88304; 96361; 96365; 96366; 96367; 96375; 96376; 99285; A9270; G0378; J0696; J1100; J1170; J1630; J1836; J1885; J2270; J2405; J2704; J3010; J7030; J7040; J7120

== ENCOUNTER 2023-12-22 08:56 | Outpatient (CLI) | payer MEDICARE, SELFPAY ==
--- NOTE | ~2023-12-22 | MM_ITS ---
EXAMINATION: MM screening [facility] BI w heriberto HISTORY: Screening TECHNIQUE: Craniocaudal and mediolateral oblique 3-D tomosynthesis images were obtained and synthetic 2-D images were generated. CAD analysis was submitted and interpreted. COMPARISON: 08/23/2022 BREAST PARENCHYMAL COMPOSITION: There are scattered areas of fibroglandular density. FINDINGS: Stable benign-appearing calcifications and breast asymmetries. There is no evidence of susp icious mass, calcification, or architectural distortion to suggest malignancy in either breast. There has been no suspicious interval change. IMPRESSION: 1. No mammographic evidence of malignancy. 2. Recommend routine screening mammography in one year. BI-RADS Category 2: Benign finding(s). Reviewed, dictated and finalized at location B.
== END 2023-12-22 08:57 | disposition home or self-care (01) ==
LOC: ANHIMG 08:56
PROVIDERS: PCP Family Medicine; Visit Provider Family Medicine
DX: Z12.31 Encounter for screening mammogram for malignant neoplasm of breast (principal)
CPT/HCPCS: 77063; 77067

== ENCOUNTER 2024-03-29 08:23 | Emergency (ER) | payer MEDICARE, SELFPAY ==
--- NOTE | ~2024-03-29 | XR_ITS ---
EXAMINATION: XR chest 2V 03/29/2024 08:50 INDICATION: Cough and congestion PROCEDURE: 2 view chest COMPARISON: 06/14/2022 FINDINGS: The lungs are clear. The cardiomediastinal silhouette is within normal limits. There are no pleural effusions. There is no pneumothorax suspected. IMPRESSION: 1: NO ACUTE CARDIOPULMONARY DISEASE. Reviewed, dictated and finalized at location B. [facility]
--- NOTE | 2024-03-29 08:28 | ED.URI ---
HPI - URI/Sore Throat General Chief Complaint: Upper Respiratory Infection Stated Complaint: headache/sore throat/cough/tight chest Time Seen by Provider: 03/29/24 08:33 Source: patient, RN notes reviewed and old records reviewed Mode of arrival: ambulatory Limitations: no limitations History of Present Illness HPI Narrative: 78-year-old female presents to the [facility] with complaints of productive cough, sore throat, body aches, pain for 1 week. Denies any significant chest pain. Denies fevers. Has taken Tylenol for her symptoms Patient with a history of Psoriasis, gout, Chronic A.fib, high blood pressure, high cholesterol. Patient reports that she is always in AFib Onset (ago): week(s) (1) Related Data Home Medications ?Medication ?Instructions ?Recorded ?Confirmed ?Last Taken ?Type calcium citrate 200 mg PO BID 07/22/23 03/06/24 11/26/23 17:00 History metoprolol succinate 100 mg 100 mg PO HS 07/22/23 03/06/24 11/26/23 21:00 History tablet,extended release 24 hr multivitamin with minerals-folic 1 tablet PO DAILY 07/22/23 03/06/24 11/26/23 09:00 History acid 80 mcg chewable tablet (Centrum Adult 50 Plus) fenofibrate 160 mg tablet 160 mg PO DAILY 11/27/23 03/06/24 11/26/23 09:00 History hydrochlorothiazide 25 mg tablet 25 mg PO DAILY 11/27/23 03/06/24 11/26/23 09:00 History irbesartan 300 mg tablet 300 mg PO HS 11/27/23 03/06/24 11/26/23 21:00 History rivaroxaban 20 mg tablet (Xarelto) 20 mg PO DAILY 11/27/23 03/06/24 11/26/23 17:00 History allopurinol 200 mg tablet 200 mg PO DAILY 03/06/24 03/06/24 Unknown History folic acid 1 mg tablet 1 mg PO DAILY 03/06/24 03/06/24 Unknown History omega-3 fatty acids 1,000 mg 2,000 mg PO BID 03/06/24 03/06/24 Unknown History capsule Allergies Allergy/AdvReac Type Severity Reaction Status Date / Time glycerin Allergy Intermediate Itching Verified 03/29/24 08:35 iodine Allergy Intermediate Rash Verified 03/29/24 08:35 [id number] Reductase Allergy Intermediate Muscle Pain Verified 03/29/24 08:35 Inhibitor Review of Systems Review of Systems: All systems reviewed & are unremarkable except as noted in HPI and below Constitutional: Constitutional: Reports as per HPI, Reports body ache(s), Reports fatigue, Denies fever(s) and Reports headache(s) ENT: Reports as per HPI and Reports sore throat Cardiovascular: Cardiovascular: Reports no additional cardiovascular complaints, Denies chest pain and Denies dyspnea Respiratory: Respiratory: Reports as per HPI, Denies chest congestion, Reports cough (Productive) and Denies dyspnea Gastrointestinal: Gastrointestinal: Reports no additional gastrointestinal complaints, Denies abdominal pain, Denies nausea and Denies vomiting Musculoskeletal: Musculoskeletal: Reports no additional musculoskeletal complaints Integumentary/Breasts: Skin/Breast: Reports system reviewed and no additional complaints, except as docu PMFSH Past Medical History Medical History Normal nuclear stress test (04/2023) Prediabetes Psoriasis Psoriatic arthritis Gout Chronic anticoagulation Paroxysmal atrial fibrillation Hypertension Hepatic steatosis Arthritis Hyperlipidemia Atrial fibrillation and flutter Surgical History Surgical History History of laparoscopic cholecystectomy 11/28/2023 History of tonsillectomy History of cataract extraction with lens replacement History of total right hip arthroplasty (03/2008) History of total left hip arthroplasty (06/2007) History of arthroplasty of left knee (08/16/23) Family History Family History Mother Hypertension Heart disease Sibling Leukemia Heart disease Thyroid disorder Social History Social History Social History: Surrogate medical decision maker: Srinivas Samaneigo, son. Code status: Full code. Smoking packs per day: 1 Smoking cigarettes per day: 20.0 Years smoked: 10 Smoking pack-years: 10.00 Smoking status: Former smoker Second hand tobacco smoke exposure: No Alcohol intake: current Alcohol use details: Perhaps 1 alcoholic beverage a month. Substance use: never Substance use type: does not use Do You Feel Safe in your Home?: Yes Lack of Transportation: No Lack of Food: Never True Current Housing: I Have Housing Concerned About Future Housing: No Difficulty Paying Gas/Electric Bills: No Difficulty Paying for Meds: No Currently Unemployed: No Education: High School Diploma/GED Difficulty w/ Childcare or Family Care: No Living arrangements: alone Occupation/Education: retired Gender identity (if verbalized by the patient): Female Sexual Orientation (if Verbalized by the Patient): Straight or Heterosexual Spiritual care concerns: No Comments At the time of my signature, I reviewed and agree with the nursing past medical, surgical, social, and family history. There is no relevant family history pertinent to the patient complaint. Exam Const: General: cooperative, healthy appearing, comfortable, no acute distress, well developed, alert and well nourished Nutritional Appearance: well nourished Orientation/consciousness: patient oriented x3 Limitations: no limitations HENMT: Head: normal to inspection Ears: hearing grossly normal bilaterally, external ears normal, TM's normal bilaterally, EAC's normal, mastoids normal and no periauricular adenopathy Face/Nose/Sinus: Normal external nose present, normal facial exam and face symmetric Face and sinus: normal facial exam and face symmetric Mouth: Yes Normal oral and palatal mucosa present, Yes lip normal and Yes tongue normal Throat: posterior oropharynx normal, uvula midline, postnasal drainage and uvular edema Eyes: General: appearance normal, both eyes and all related structures Alignment and Position: alignment normal Periorbital: periorbital findings normal Neck: Neck: normal visual inspection, full ROM, no lymphadenopathy and no meningeal signs Chest: Chest palpation & inspection: normal inspection of the chest Resp: Effort & Inspection: normal respiratory effort and able to speak in complete sentences Auscultation: clear to auscultation bilaterally, no crackles, no rales, no rhonchi, no wheezes and diminished lung sounds bilateral in the lower lung joyce Cardio: Rate: regular rate Rhythm: abnormal rhythm irregularly irregular (Chronic AFib) Skin: General skin exam: normal color and no rashes or lesions noted Lesions: no lesions Rashes: no rashes Wounds: no wounds Neuro: General: patient oriented x3, gait normal, tone normal, moves all extremities and no meningeal signs Cognition (Neuro): normal cognition Speech: normal speech Gait exam (Neuro): Normal gait present Extrem: General: normal to inspection, full ROM, capillary refill normal and normal gait Psych: Appearance: grossly normal and well kempt Mental Status: mental status grossly normal Speech and movement: Normal speech and movement present and Clear speech present Affect: normal affect Attitude: cooperative Course Course Level of Care: Express Care Visit Vital Signs Vital signs: Vital Signs Temperature 97.7 F 03/29/24 08:34 Pulse Rate 82 03/29/24 08:34 Respiratory Rate 18 03/29/24 08:34 Blood Pressure 157/90 H 03/29/24 08:34 Pulse Oximetry 98 03/29/24 08:34 Oxygen Delivery Room Air 03/29/24 08:34 Temperature 97.7 F 03/29/24 08:34 Pulse Rate 82 03/29/24 08:34 Respiratory Rate 18 03/29/24 08:34 Blood Pressure 157/90 H 03/29/24 08:34 Pulse Oximetry 98 03/29/24 08:34 Oxygen Delivery Room Air 03/29/24 08:34 Reviewed MDM - URI/Sore Throat MDM Narrative Medical decision making narrative: Patient sitting comfortably in exam room. Nontoxic vitals stable. Patient currently being treated for blood pressure issues Patient presents with 1 week history of URI symptoms, productive cough, sore throat. Strep negative, will culture. Patient chest x-ray is negative. Due to past medical history will place on antibiotic. But did discuss that this could be viral in the cough could last for several weeks. Discharge instructions reviewed with patient, as well as provided in writing per nursing staff. The instructions also include specific and strict return/GO TO THE ER as well as f/u information. All questions have been answered, and the patient deny any further questions with discharge and discharge plan. Some parts of this dictation were generated by voice recognition software and may contain typographical and/or grammatical inaccuracies. Differential Diagnosis Differential diagnosis: Likely upper respiratory infection, otitis media, sinusitis, viral infection, bronchitis and pharyngitis Lab Data Labs: Lab Results 03/29/24 Range/Units 08:50 POC Grp A Strep Screen Negative (Negative) Reviewed Imaging Data Radiologist's impression: EXAMINATION: XR chest 2V 03/29/2024 08:50 INDICATION: Cough and congestion PROCEDURE: 2 view chest COMPARISON: 06/14/2022 FINDINGS: The lungs are clear. The cardiomediastinal silhouette is within normal limits. There are no pleural effusions. There is no pneumothorax suspected. IMPRESSION: 1: NO ACUTE CARDIOPULMONARY DISEASE. Critical Care Time Critical Care Time Critical Care Time: No Discharge Plan Discharge Clinical Impression: Bronchitis Patient Disposition: Home, Self-Care Condition: Stable Instructions: Antibiotic Form, Acute Bronchitis (ED) Additional Instructions: Your rapid strep swab was negative today at [facility]. A throat culture will be sent to the laboratory for further testing. If the test is positive, you will receive a phone call within 48 hours and an appropriate antibiotic will be initiated at that time. Your chest x-ray did not show signs of pneumonia. It is very important to treat your symptoms. Drink Plenty of water, Gatorade, Pedialyte, ice pops or Jell-O. -take Tylenol per package directions for fever or pain. -Antihistamine medication such as Zyrtec/Claritin/Porsha during the day can help improve symptoms. -doing daily nasal irrigations can help relieve pressure your sinuses. Things like a Neti pot -Use Flonase twice a day for 5 days then daily to help reduce the inflammation and dry up your sinuses. -You can also use Coricidin HBP or Mucinex. Be sure to drink plenty of water with this medication at least 8 ounces with every dose and it is important to drink 8 to 10 glasses of water per day. Water is a natural decongestant. Please check with your pharmacist for medications that are safe with the prescribed medications you are taking -Eat and drink things that are easy to swallow, like tea or soup, or popsicles. -Oral rinses such as: Salt water gargles and/or may use topical anesthetic (eg. Chloraseptic spray) or lozenges to relieve dryness or throat pain). -Frequent hand washing or hand coat padder is one of the best ways to prevent spread of infection. -Using a vaporizer or humidifier at night will also help thin secretions and help with coughing up phlegm. -Follow up with primary care provider in 7-10 days if condition is not improving - For new or worsening symptoms go directly to the nearest ER Patient Language: [place]er Prescriptions: New doxycycline monohydrate 100 mg tablet 100 mg PO BID Qty: 14 0RF prednisone 20 mg tablet See Rx Instructions .Route .COMPLEX Qty: 9 0RF Rx Instructions: Take 40 mg daily for 3 days, 20 mg daily for 3 days No Action Centrum Adult 50 Plus 80 mcg tablet,chewable 1 tablet PO DAILY calcium citrate 200 mg (950 mg) tablet 200 mg PO BID allopurinol 200 mg tablet 200 mg PO DAILY folic acid 1 mg tablet 1 mg PO DAILY omega-3 fatty acids 1,000 mg capsule 2,000 mg PO BID methotrexate sodium 2.5 mg tablet See Rx Instructions .ROUTE .COMPLEX Qty: 72 1RF Dose Instruction: TAKE 6 TABLETS (15MG) BY MOUTH ONCE WEEKLY. Patient Comments: TAKES ON THURSDAYS Rx Instructions: TAKE 6 TABLETS (15MG) BY MOUTH ONCE WEEKLY. Patient takes this on Tuesdays Otezla 30 mg tablet 30 mg PO BID Qty: 60 11RF hydrochlorothiazide 25 mg tablet 25 mg PO DAILY Rx Instructions: TAKE 1 TABLET BY MOUTH EVERY DAY irbesartan 300 mg tablet 300 mg PO HS Rx Instructions: TAKE 1 TABLET BY MOUTH EVERY DAY fenofibrate 160 mg tablet 160 mg PO DAILY Rx Instructions: TAKE 1 TABLET BY MOUTH EVERY DAY Xarelto 20 mg tablet 20 mg PO DAILY Rx Instructions: 20 MG ORALLY DAILY MUST ADMINISTER WITH EVENING MEAL metoprolol succinate 100 mg tablet extended release 24 hr 100 mg PO HS Rx Instructions: TAKE 1 TABLET BY MOUTH EVERY DAY ezetimibe 10 mg tablet 10 mg PO DAILY Qty: 90 2RF digoxin 125 mcg (0.125 mg) tablet See Rx Instructions .ROUTE .COMPLEX Qty: 90 2RF Dose Instruction: TAKE 1 TABLET BY MOUTH DAILY Rx Instructions: TAKE 1 TABLET BY MOUTH DAILY Follow-up/Referrals: Jolynn Sauceda MD [Primary Care Provider] - 1 Week (express care follow up) Time of Disposition: 09:08
[2024-03-29 08:34] VITALS: BP 157/90; PULSE 82; RESP 18; TEMP 36.5; O2SAT 98
[2024-03-29 08:53] LABS: EDSTREPNEGPOS1 Negative (Negative)
== END 2024-03-29 09:13 | disposition home or self-care (01) ==
PROVIDERS: Emergency Provider Nurse Practitioner; PCP Family Medicine
DX: J40 Bronchitis, not specified as acute or chronic (principal); Z87.891 Personal history of nicotine dependence; I48.0 Paroxysmal atrial fibrillation; I10 Essential (primary) hypertension; E78.5 Hyperlipidemia, unspecified; R73.03 Prediabetes; L40.50 Arthropathic psoriasis, unspecified; K76.0 Fatty (change of) liver, not elsewhere classified; M10.9 Gout, unspecified; L40.9 Psoriasis, unspecified; Z96.1 Presence of intraocular lens; Z98.42 Cataract extraction status, left eye; Z98.41 Cataract extraction status, right eye; Z96.643 Presence of artificial hip joint, bilateral; Z96.652 Presence of left artificial knee joint; Z79.01 Long term (current) use of anticoagulants
CPT/HCPCS: 71046; 87081; 87880; 99213; G0463

== ENCOUNTER 2024-12-18 10:28 | Outpatient (CLI) | payer MEDICARE, SELFPAY ==
[2024-12-18 11:03] LABS: Alanine Aminotransferase 31 U/L (6-35); Albumin Level 3.9 g/dL (3.5-5.1); Alkaline Phosphatase 46 U/L (38-126); Anion Gap 7 mmol/L (4-12); Aspartate Amino Transferase 28 U/L (14-36); Bilirubin,Total 0.3 mg/dL (0.2-1.3); Blood Urea Nitrogen 27 mg/dL (7-17); Calcium 9.6 mg/dL (8.4-10.2); Carbon Dioxide 28 mmol/L (22-30); Chloride 104 mmol/L (98-107); Cholesterol 193 mg/dL (0-200); Estimated Glomerular Filt Rate 42; Glucose 109 mg/dL (65-110); HDL Direct 53 mg/dL; Potassium 3.7 mmol/L (3.4-5.0); Sodium 139 mmol/L (137-145); Total Protein 6.9 g/dL (6.3-8.2); Triglycerides 194 mg/dL (<150)
== END 2024-12-18 10:29 | disposition home or self-care (01) ==
LOC: ANHLAB 10:29
PROVIDERS: PCP Family Medicine; Visit Provider Internal Medicine Cardiovascular Disease
DX: E78.2 Mixed hyperlipidemia (principal)
CPT/HCPCS: 36415; 80053; 80061